=== PATIENT | female | born 1980 | race Caucasian/White ===

== ENCOUNTER 2016-10-15 10:52 | Emergency (ER) | payer OTHER ==
[2016-10-15] MEDS ORDERED: ASPIRIN 81 MG TABLET, CHEWABLE PO ONE (10:59)
[2016-10-15] MEDS ORDERED: NORMAL SALINE 1000 ML 1,000 ML IV ONE (11:12)
--- NOTE | 2016-10-15 11:31 | ER Document Report ---
ED Medical Screen (RME) - General Chief Complaint: Chest Pain Stated Complaint: CHEST PAIN AND SHORTNESS OF BREATH Mode of Arrival: Ambulatory Information source: Patient Notes: 36 y/o F presents to ED c/o chest pain, sob, cough, and associated dizziness/ lightheadedness. Denies fever or n/v. 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 I have greeted and performed a rapid initial assessment of this patient. A comprehensive ED assessment and evaluation of the patient, analysis of test results and completion of the medical decision making process will be conducted by additional ED providers. TRAVEL OUTSIDE OF THE [place] IN LAST 30 DAYS: No - Related Data Allergies/Adverse Reactions: No Known Allergies Allergy (Unverified 10/15/16 11:10) Past Medical History - Social History Chew tobacco use (# tins/day): No Frequency of alcohol use: None Drug Abuse: None Renal/ Medical History: Denies: Hx Peritoneal Dialysis Physical Exam - Vital signs Vitals: Temp Pulse Resp BP Pulse Ox 98.3 F 123 H 16 142/110 H 97 10/15/16 11:06 10/15/16 11:06 10/15/16 11:06 10/15/16 11:06 10/15/16 11:06 - General General appearance: Alert In distress: None - Respiratory Respiratory status: No respiratory distress Breath sounds: Normal - Cardiovascular Rhythm: Regular, Tachycardia Pulses: Normal: Radial Normal capillary refill: Yes Course - Vital Signs Vital signs: Temp Pulse Resp BP Pulse Ox 98.3 F 123 H 16 142/110 H 97 10/15/16 11:06 10/15/16 11:06 10/15/16 11:06 10/15/16 11:06 10/15/16 11:06
[2016-10-15 12:09] LABS: ABSOLUTE BASOPHILS # (AUTO) 0.1 10^3/uL (0.0-0.2); ABSOLUTE EOSINOPHILS # (AUTO) 0.1 10^3/uL (0.0-0.6); ABSOLUTE MONOCYTES (AUTO) 0.8 10^3/uL (0.1-1.4); ABSOLUTE NEUT (AUTO) 8.9 10^3/uL (1.7-8.2); BASOPHILS % (AUTO) 0.5 % (0-2); EOSINOPHILS % (AUTO) 0.5 % (0-6); HEMATOCRIT 42.5 % (36.0-47.0); HEMOGLOBIN 13.9 g/dL (12.0-15.5); HGB HCT DIFFERENCE -0.8; LYMPHOCYTES % (AUTO) 17.1 % (13-45); MEAN CORPUSCULAR HEMOGLOBIN 24.8 pg (27.0-33.4); MEAN CORPUSCULAR HGB CONC 32.6 g/dL (32.0-36.0); MEAN CORPUSCULAR VOLUME 76 fl (80-97); RED BLOOD COUNT 5.59 10^6/uL (3.72-5.28); RED CELL DISTRIBUTION WIDTH 18.5 % (11.5-14.0); SEGMENTED NEUTROPHILS % (AUTO) 74.9 % (42-78); WHITE BLOOD COUNT 11.9 10^3/uL (4.0-10.5)
[2016-10-15 12:30] LABS: ALANINE AMINOTRANSFERASE 27 U/L (9-52); ALBUMIN 4.4 g/dL (3.5-5.0); ALKALINE PHOSPHATASE 84 U/L (38-126); ANION GAP 14 (5-19); ASPARTATE AMINO TRANSFERASE 20 U/L (14-36); BILIRUBIN,TOTAL 0.5 mg/dL (0.2-1.3); BLOOD UREA NITROGEN 16 mg/dL (7-20); CALCIUM 9.9 mg/dL (8.4-10.2); CARBON DIOXIDE 24 mmol/L (22-30); CHLORIDE 103 mmol/L (98-107); CREATINE KINASE 62 U/L (30-135); CREATININE RESULT 0.64 mg/dL (0.52-1.25); GLUCOSE 105 mg/dL (75-110); POTASSIUM 4.9 mmol/L (3.6-5.0); SODIUM 140.7 mmol/L (137-145); TOTAL PROTEIN 7.7 g/dL (6.3-8.2)
[2016-10-15 12:42] LABS: CREATINE KINASE MB 0.31 ng/mL (<4.55)
[2016-10-15 12:43] LABS: TROPONIN I < 0.012 ng/mL
[2016-10-15 12:48] LABS: APPEARANCE,URINE SLIGHTLY-CLOUDY; BILIRUBIN,URINE NEGATIVE (NEGATIVE); GLUCOSE, URINE NEGATIVE (NEGATIVE); KETONES,URINE TRACE mg/dL (NEGATIVE); LEUKOCYTE ESTERASE,URINE SMALL (NEGATIVE); NITRITE,URINE NEGATIVE (NEGATIVE); PROTEIN,URINE 30 mg/dL (NEGATIVE); URINE SPECIFIC GRAVITY 1.038; UROBILINOGEN,URINE NEGATIVE mg/dL (<2.0)
[2016-10-15] MEDS ORDERED: ALBUTEROL SULFATE 0.083% NEB 2.5 MG/3 ML AMPUL NEB ONE (16:21)
--- NOTE | 2016-10-15 16:22 | ER Document Report ---
ED General - General Chief Complaint: Chest Pain Stated Complaint: CHEST PAIN AND SHORTNESS OF BREATH Mode of Arrival: Ambulatory Information source: Patient Notes: This is a 36-year-old female who presents to the ER with a 2-3 day history of congestion, cough, and occasional chills and achiness. She has had no documented fevers at home. Her cough is occasionally productive of white sputum. Today she felt somewhat tight in her chest with a little bit of shortness of breath so she decided to come for evaluation. 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 TRAVEL OUTSIDE OF THE [place] IN LAST 30 DAYS: No - Related Data Allergies/Adverse Reactions: No Known Allergies Allergy (Unverified 10/15/16 11:10) Past Medical History - General Information source: Patient - Social History Smoking Status: Former Smoker Chew tobacco use (# tins/day): No Frequency of alcohol use: None Drug Abuse: None Family History: Reviewed & Not Pertinent Patient has suicidal ideation: No Patient has homicidal ideation: No Renal/ Medical History: Denies: Hx Peritoneal Dialysis Malignancy Medical History: Reports: Other - sarcoma RLE Past Surgical History: Reports: Hx Orthopedic Surgery - RLE amputation Review of Systems - Review of Systems Notes: REVIEW OF SYSTEMS: CONSTITUTIONAL : As per history of present illness EENT: As per history of present illness with nasal congestion. CARDIOVASCULAR: As per history of present illness RESPIRATORY: As per history of present illness GASTROINTESTINAL: Denies abdominal pain. Denies nausea, vomiting, or diarrhea. GENITOURINARY: Denies difficulty urinating, painful urination, burning, frequency, or blood in urine. FEMALE GENITOURINARY: Denies vaginal bleeding, abnormal or irregular periods. LMP: 3 weeks agoi MUSCULOSKELETAL: Denies neck or back pain or joint pain or swelling. SKIN: Denies rash or skin lesions. HEMATOLOGIC : Denies easy bruising or bleeding. LYMPHATIC: Denies swollen, enlarged glands. NEUROLOGICAL: Denies altered mental status or loss of consciousness. Denies headache. PSYCHIATRIC: Denies anxiety or stress or depression. ALL OTHER SYSTEMS REVIEWED AND NEGATIVE. Physical Exam - Vital signs Vitals: Temp Pulse Resp BP Pulse Ox 98.3 F 123 H 16 142/110 H 97 10/15/16 11:06 10/15/16 11:06 10/15/16 11:06 10/15/16 11:06 10/15/16 11:06 - Notes Notes: PHYSICAL EXAMINATION: GENERAL: Well-appearing, well-nourished and in no acute distress. Pleasant and conversant with no conversational dyspnea HEAD: Atraumatic, normocephalic. EYES: Pupils equal round and reactive to light, extraocular movements intact, sclera anicteric, conjunctiva are normal. ENT: nares patent, oropharynx clear without exudates. Moist mucous membranes. NECK: Normal range of motion, supple without lymphadenopathy LUNGS: Breath sounds clear to auscultation bilaterally and equal. No wheezes rales or rhonchi. HEART: Regular rate and rhythm without murmurs ABDOMEN: Soft, nontender, normoactive bowel sounds. No guarding, no rebound. No masses appreciated. EXTREMITIES: Normal range of motion, no pitting or edema. No cyanosis. NEUROLOGICAL: Cranial nerves grossly intact. Normal speech PSYCH: Normal mood, normal affect. SKIN: Warm, Dry, normal turgor, no rashes or lesions noted. Course - Re-evaluation Re-evalutation: 10/15/16 17:36 Patient reevaluated. Tachycardia has improved. She feels somewhat better after the albuterol neb. Her d-dimer is negative and at this point with her upper respiratory symptoms I have a low suspicion for PE do not feel that CT angiogram is indicated at this point. We will treat her bronchitis and she will follow up with her primary care physician. She is instructed to return to the ER for any worsening symptoms or concerns and she is very comfortable with this plan. - Vital Signs Vital signs: Temp Pulse Resp BP Pulse Ox 98.7 F 80 16 119/78 98 10/15/16 17:57 10/15/16 17:57 10/15/16 17:57 10/15/16 17:57 10/15/16 17:57 - Laboratory Result Diagrams: 10/15/16 11:45 10/15/16 11:45 Laboratory results interpreted by me: 10/15/16 10/15/16 11:45 11:45 WBC 11.9 H RBC 5.59 H MCV 76 L MCH 24.8 L RDW 18.5 H Absolute Neutrophils 8.9 H Urine Protein 30 H Urine Ketones TRACE H Ur Leukocyte Esterase SMALL H Urine Ascorbic Acid 40 H - Diagnostic Test Radiology reviewed: Reports reviewed - CXR negative Discharge - Discharge Clinical Impression: Bronchitis Upper respiratory infection Qualifiers: URI type: unspecified URI Qualified Code(s): J06.9 - Acute upper respiratory infection, unspecified Condition: Stable Disposition: HOME, SELF-CARE Additional Instructions: BRONCHITIS: You have acute bronchitis. This disease is an infection or inflammation of the air passageways in your lungs. Symptoms usually include cough, low grade fever, shortness of breath, and wheezing. The cough usually persists for a couple of weeks. Most cases of bronchitis get better without antibiotics. We prescribe antibiotics when we believe bacteria are damaging your airways, or if there's high risk the bronchitis will worsen into pneumonia. Increase your fluid intake. A cool mist humidifier may make your lungs more comfortable. An expectorant (cough medicine that loosens phlegm) can help. If you smoke, STOP!!! Recovery from bronchitis can be somewhat slow, but you should see improvement within a day or two. Repeated episodes of bronchitis may result in lung damage -- for example, chronic bronchitis, recurrent pneumonias, or emphysema. Call the doctor if you develop increasing fever, shortness of breath, chest pain, bloody sputum, or otherwise worsen. If you have not improved at all after several days, contact the physician. COUGH-SUPPRESSANT & EXPECTORANT MEDICATION: You are to use a cough medication as needed for relief of symptoms. This medicine is a combination of an expectorant (to make the mucous thinner and more easily "coughed up") and a cough suppressant (to reduce the frequency of coughing). The cough-suppressant medicine is related to narcotics. You may experience mild nausea and sleepiness. Some patients who are very sensitive to narcotics may have stomach pain from this medicine. Taking the medicine with food reduces these side effects. Do not drive or work with machinery until you know how this medicine affects you. The expectorant should have no side effects. Iodine-containing expectorants (such as organidin) should not be taken by persons with active thyroid disease unless approved by your doctor. Call the doctor if you develop shortness of breath, hives, rash, itching, lightheadedness, or severe nausea and vomiting. INHALED BRONCHODILATORS: You have received a treatment of and/or prescription for an inhaled bronchodilator -- a medication which stimulates the airways in the lung to dilate. This improves the flow of air in asthma, bronchitis, and emphysema. These medicines have some similarity to adrenaline, and can cause similar side effects: shakiness, racing heart, and a sense of nervousness. These side effects decrease with time. Contact your doctor if these side effects are severe. Do not over-use the medicine. Too-frequent use of the inhaler may make it ineffective. Call your doctor if the inhaler is not controlling your symptoms at the prescribed doses. ANTIBIOTIC THERAPY: You have been given an antibiotic prescription. It's important that you take all the medication, unless instructed otherwise by your physician. Failure to complete the entire course can result in relapse of your condition. Common side effects of antibiotics include nausea, intestinal cramping, or diarrhea. Women may develop vaginal yeast infections, and babies can get yeast (thrush) in the mouth following the use of antibiotics. Contact your physician if you develop significant side effects from this medication. Allergy to this antibiotic can result in hives, wheezing, faintness, or itching. If symptoms of allergy occur, stop the medication and call your doctor. AZITHROMYCIN: Azithromycin (Zithromax) is a broad spectrum antibiotic in the same class as erythromycin. It can treat a variety of bacterial infections, but is most frequently used for respiratory infections. Azithromycin is extremely long-lasting. It accumulates in body tissues and continues to kill bacteria for many days. In order to improve absorption, Azithromycin should be taken at least one hour before or two hours after a meal. It does not have the same strong tendency to upset the stomach as erythromycin and is usually very well tolerated. Patients who have had a rash or other true allergic reactions to erythromycin should not take this medication. Call if you develop gastrointestinal distress, severe diarrhea, rash, hives, itching, or shortness of breath. USE OF ACETAMINOPHEN (Tylenol): Acetaminophen may be taken for pain relief or fever control. It's much safer than aspirin, offering a wider range of "safe" dosages. It is safe during . Some brand names are Tylenol, Panadol, Datril, Anacin 3, Tempra, and Liquiprin. Acetaminophen can be repeated every four hours. The following are maximum recommended dosages: >89 pounds or adults 650 mg to 900 mg Acetaminophen can be repeated every four hours. Maximum dose not to exceed 4000 mg a day. SMOKING: If you smoke, you should stop smoking. The tar and chemicals in cigarette smoke are harmful. Smoking has been shown to cause: emphysema chronic bronchitis lung cancer mouth and throat cancer stomach and pancreas cancer premature aging defects In addition, smoking increases ear and lung infections in children of smokers. FOLLOW-UP CARE: If you have been referred to a physician for follow-up care, call the physician s office for an appointment as you were instructed or within the next two days. If you experience worsening or a significant change in your symptoms, notify the physician immediately or return to the Emergency Department at any time for re-evaluation. Prescriptions: Albuterol Sulfate [Proair HFA Inhalation Aerosol 8.5 gm MDI] 2 puff IH Q4H PRN # 1 mdi PRN Reason: Azithromycin [Zithromax 250 mg Tablet] 250 mg PO ASDIR PRN #6 tablet PRN Reason: Guaifenesin/Codeine Phos [Robitussin-AC Syrup 59 ml] 10 ml PO QIDP PRN #120 ml PRN Reason: Prednisone [Deltasone 20 mg Tablet] 2 tab PO DAILY 5 Days Referrals: RENZO GARCIA DO [Primary Care Provider] - Follow up as needed
[2016-10-15 17:58] VITALS: BP 119/78
--- NOTE | 2016-10-15 20:05 | EKG REPORT ---
SEVERITY:- BORDERLINE ECG - SINUS TACHYCARDIA BORDERLINE T WAVE ABNORMALITIES : Confirmed by: Clinton Iniguez 15-Oct-2016 20:04:43
== END 2016-10-15 18:00 | disposition home or self-care (01) ==
LOC: ER 10:52
DX: J06.9 Acute upper respiratory infection, unspecified (principal); J40 Bronchitis, not specified as acute or chronic; R07.9 Chest pain, unspecified; R00.0 Tachycardia, unspecified; Z89.611 Acquired absence of right leg above knee; Z87.891 Personal history of nicotine dependence; Z85.9 Personal history of malignant neoplasm, unspecified
CPT/HCPCS: 93005; 94640; 99284; 96360; 36415; 82553; 82550; 84703; 85025; 80053; 81001; 84484; 85379; 87804; 71020; 93010; J7030

== ENCOUNTER 2018-04-14 20:47 | Inpatient (IN) | payer OTHER ==
[2018-04-14] MEDS ORDERED: ASPIRIN 81 MG TABLET, CHEWABLE PO ONE (21:10)
--- NOTE | 2018-04-14 21:46 | RADIOLOGY REPORT (SQ) ---
EXAM DESCRIPTION: CHEST SINGLE VIEW COMPLETED DATE/TIME: 04/14/2018 9:39 pm REASON FOR STUDY: CP COMPARISON: 10/15/2016 EXAM PARAMETERS: NUMBER OF VIEWS: One view. TECHNIQUE: Single frontal radiographic view of the chest acquired. RADIATION DOSE: NA LIMITATIONS: None. FINDINGS: LUNGS AND PLEURA: Dominant 10 cm mass in the right lung. Multiple pulmonary nodules throu ghout both lungs. MEDIASTINUM AND HILAR STRUCTURES: No masses. Contour normal. HEART AND VASCULAR STRUCTURES: Heart normal in size. Normal vasculature. BONES: No acute findings. HARDWARE: None in the chest. OTHER: No other significant finding. IMPRESSION: Dominant mass with multiple pulmonary nodules. Most likely primary lung malignancy with metastases. TECHNICAL DOCUMENTATION: JOB ID: [id number] [employer]- All Rights Reserved Reading location - IP/workstation name: [email or web address]
[2018-04-14] MEDS ORDERED: LORAZEPAM INJ 2 MG/1 ML VIAL IV ONE (21:50)
[2018-04-14] MEDS ORDERED: NORMAL SALINE 1000 ML 1,000 ML IV ONE (21:51)
[2018-04-14 22:26] LABS: ABSOLUTE BASOPHILS # (AUTO) 0.1 10^3/uL (0.0-0.2); ABSOLUTE EOSINOPHILS # (AUTO) 0.1 10^3/uL (0.0-0.6); ABSOLUTE MONOCYTES (AUTO) 0.8 10^3/uL (0.1-1.4); BASOPHILS % (AUTO) 0.7 % (0-2); EOSINOPHILS % (AUTO) 1.3 % (0-6); HEMATOCRIT 36.4 % (36.0-47.0); HEMOGLOBIN 11.8 g/dL (12.0-15.5); LYMPHOCYTES % (AUTO) 11.2 % (13-45); MEAN CORPUSCULAR HEMOGLOBIN 24.2 pg (27.0-33.4); MEAN CORPUSCULAR HGB CONC 32.5 g/dL (32.0-36.0); MEAN CORPUSCULAR VOLUME 74 fl (80-97); MONOCYTES % (AUTO) 8.5 % (3-13); PLATELET COUNT 331 10^3/uL (150-450); RED CELL DISTRIBUTION WIDTH 16.9 % (11.5-14.0); SEGMENTED NEUTROPHILS % (AUTO) 78.3 % (42-78); TOTAL CELLS COUNTED % (AUTO) 100 %; WHITE BLOOD COUNT 8.9 10^3/uL (4.0-10.5)
[2018-04-14] MEDS ORDERED: MORPHINE SULFATE 10 MG/ML INJ IV PRN (22:32)
--- NOTE | 2018-04-14 22:33 | ER Document Report ---
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 Patient states that she just got back from a vacation to [place]. She states that she had a relatively abrupt onset of a sensation of needing to cough. She states that when she coughed she coughed up approximately a tablespoon of blood. She states thereafter she began to develop a stabbing, constant piercing pain to the right upper side of her chest. She states breathing worsens the pain. Nothing improves the pain. She denies any history of similar symptoms in the past. No history of DVT or pulmonary embolus. She has not contacted her oncologist regarding today's concerns. She is not currently on any chemotherapy due to recent radiation of her left hip. TRAVEL OUTSIDE OF THE [place] IN LAST 30 DAYS: No - Related Data Allergies/Adverse Reactions: No Known Allergies Allergy (Unverified 10/15/16 11:10) Past Medical History - General Information source: Patient - Social History Smoking Status: Never Smoker Chew tobacco use (# tins/day): No Frequency of alcohol use: None Drug Abuse: None Lives with: Spouse/Significant other Family History: Reviewed & Not Pertinent Patient has suicidal ideation: No Patient has homicidal ideation: No Renal/ Medical History: Denies: Hx Peritoneal Dialysis Past Surgical History: Reports: Hx Orthopedic Surgery - RLE amputation Review of Systems - Review of Systems Notes: Constitutional: Negative for fever. HENT: Negative for sore throat. Eyes: Negative for visual changes. Cardiovascular: Positive for chest pain. Respiratory: Positive for shortness of breath. Gastrointestinal: Negative for abdominal pain, vomiting or diarrhea. Genitourinary: Negative for dysuria. Musculoskeletal: Negative for back pain. Skin: Negative for rash. Neurological: Negative for headaches, weakness or numbness. 10 point ROS negative except as marked above and in HPI. Physical Exam - Vital signs Vitals: Temp Pulse Resp BP Pulse Ox 98.3 F 95 20 135/77 H 96 04/14/18 21:07 04/14/18 21:07 04/14/18 21:07 04/14/18 21:07 04/14/18 21:07 Interpretation: Normal Notes: PHYSICAL EXAMINATION: GENERAL: Appears uncomfortable, in pain, no respiratory distress HEAD: Atraumatic, normocephalic. EYES: Pupils equal round and reactive to light, extraocular movements intact, sclera anicteric, conjunctiva are normal. ENT: nares patent, oropharynx clear without exudates. Moderately dry mucous membranes. NECK: Normal range of motion, supple without lymphadenopathy LUNGS: Moderate tachypnea but no overt respiratory distress. Faint expiratory wheezing in the upper right lobe. HEART: Regular tachycardia without murmurs ABDOMEN: Soft, nontender, normoactive bowel sounds. No guarding, no rebound. No masses appreciated. EXTREMITIES: Right BKA. Left lower extremity without any pitting edema. NEUROLOGICAL: No focal neurological deficits. Moves all extremities spontaneously and on command. PSYCH: Moderately anxious SKIN: Warm, Dry, normal turgor, no rashes or lesions noted. Course - Re-evaluation Re-evalutation: 04/14/18 22:32 Patient presents with gross small-volume hemoptysis, shortness of breath, pleuritic pain that started just prior to arrival. She recently got back from vacation in [place]. She has a history of a right BKA secondary to a soft tissue sarcoma now with no metastases to the lungs but not currently on any chemotherapy. High level concern for an acute pulmonary embolus given her initial tachycardia, multitude of risk factors. She is otherwise nontoxic in appearance, although vitals do show mild tachypnea, tachycardia. No hypertension. High level of concern for a pulmonary embolus versus pulmonary hemorrhage. Patient is in guarded condition and will be reassessed at regular intervals. 2330-patient continues to be moderately tachycardic, mildly tachypneic but in no overt respiratory distress. Awaiting results of CTA and laboratories. Will continue to reassess at regular intervals. 04/15/18 00:44 Patient has not had any further episodes of hemoptysis. Vitals have otherwise shown tachycardia but otherwise within acceptable limits. Patient has continued to have significant pain not controlled by IV morphine and we have transitioned to IV hydromorphone. CTA shows extensive lung masses, possible bronchial obstruction with post bronchial pneumonia although patient does not have infectious symptoms suggest this diagnosis. No evidence of PE. I discussed with the patient's oncologist Dr. Doe who has recommended hospitalization. I then also discussed with Dr. Reid. We have reviewed the patient's CT images, clinical history, need for pulmonary consultation and possible bronchoscopy. He is likewise comfortable keeping the patient here. I further discussed with the hospitalist Dr. Martini who is excepted the patient for admission. I then updated the patient on all of her lab results as well as discuss with her the consultations that have been made. She and her are in agreement with management and plan for hospitalization. - Vital Signs Vital signs: Temp Pulse Resp BP Pulse Ox 98.3 F 95 26 H 136/91 H 97 04/14/18 21:07 04/14/18 21:07 04/15/18 02:01 04/15/18 02:00 04/15/18 02:01 - Laboratory Result Diagrams: 04/14/18 22:10 04/14/18 22:10 Laboratory results interpreted by me: 04/14/18 04/14/18 22:10 22:10 Hgb 11.8 L MCV 74 L MCH 24.2 L RDW 16.9 H Seg Neutrophils % 78.3 H Lymphocytes % 11.2 L Carbon Dioxide 21 L Glucose 112 H - Diagnostic Test Radiology reviewed: Reports reviewed - EKG Interpretation by Me Additional EKG results interpreted by me: 04/15/18 02:52 Sinus tachycardia. Rate 107. No ST elevations or depressions. QTC is 438. Critical Care Note - Critical Care Note Total time excluding time spent on procedures (mins): 37 Comments: Critical care time spent obtaining history from patient or surrogate, discussions with consultants, development of treatment plan with patient or surrogate, evaluation of patient's response to treatment, examination of patient , ordering and performing treatments and interventions, ordering and review of laboratory studies, re-evaluation of patient's condition, ordering and review of radiographic studies and review of old charts Discharge - Discharge Clinical Impression: Hemoptysis, Pleuritic pain, Metastatic sarcoma, Tachycardia Lung malignancy Qualifiers: Laterality: unspecified laterality Lung location: unspecified part of lung Qualified Code(s): C34.90 - Malignant neoplasm of unspecified part of unspecified bronchus or lung Condition: Fair Disposition: ADMITTED INPATIENT Admitting Provider: Hospitalist Unit Admitted: [facility]
--- NOTE | 2018-04-14 22:41 | EKG REPORT ---
SEVERITY:- BORDERLINE ECG - SINUS TACHYCARDIA BORDERLINE T ABNORMALITIES, INFERIOR LEADS : Confirmed by: Clinton Iniguez 14-Apr-2018 22:40:55
[2018-04-14 22:45] LABS: ALANINE AMINOTRANSFERASE 24 U/L (9-52); ALKALINE PHOSPHATASE 73 U/L (38-126); ANION GAP 16 (5-19); ASPARTATE AMINO TRANSFERASE 17 U/L (14-36); BILIRUBIN,DIRECT 0.3 mg/dL (0.0-0.4); BILIRUBIN,TOTAL 0.4 mg/dL (0.2-1.3); BLOOD UREA NITROGEN 13 mg/dL (7-20); CALCIUM 9.3 mg/dL (8.4-10.2); CARBON DIOXIDE 21 mmol/L (22-30); CHLORIDE 105 mmol/L (98-107); CREATINE KINASE 38 U/L (30-135); GLUCOSE 112 mg/dL (75-110); POTASSIUM 4.1 mmol/L (3.6-5.0); SODIUM 142.1 mmol/L (137-145); TOTAL PROTEIN 7.2 g/dL (6.3-8.2)
[2018-04-14 22:58] LABS: CREATINE KINASE MB < 0.22 ng/mL (<4.55); TROPONIN I < 0.012 ng/mL
--- NOTE | 2018-04-14 23:52 | RADIOLOGY REPORT (SQ) ---
EXAM DESCRIPTION: CT CHEST ANGIOGRAPHY WITHOUT THEN WITH IV CONTRAST COMPLETED DATE/TME: 04/14/2018 21:50 CLINICAL HISTORY: cxr findings, hemoptysis, sob COMPARISON: None Available. TECHNIQUE: CTA of the chest obtained following the uncomplicated intravenous administration of 170 mL Omnipaque 350. 3-D/MIP reformatted images of the chest available for evaluation. DLP: 2040.06 mGycm FINDINGS: Chest: Pulmonary arteries: Contrast bolus is adequate.No filling defects identified in the pulmonary arteries to suggest pulmonary embolus. Thyroid:No abnormalities of the visualized thyroid. Great Vessels:Great vessels have normal anatomic configuration. Thoracic Aorta:No abnormalities of the thoracic aorta identified. Heart:No cardiomegaly, significant pericardial effusion, or coronary artery atherosclerosis Lymph Nodes: Large left AP window lymph node measuring 3.1 x 2.1 cm Esophagus:No abnormalities of the esophagus identified. Other:No additional findings. Lungs: There are multiple large masses throughout the lungs bilaterally, the largest of these is in the right upper lobe measuring 9.1 x 5.5 cm in greatest axial dimensions. Hazy groundglass opacities surrounding this largest mass. The second largest mass is in the lingula measuring 7.4 x 4.5 cm. Pleura: Small right pleural effusion. No pneumothorax. Trachea/Airways: No acute abnormalities of the trachea. Bones: Partially sclerotic lesion in the T12 vertebral body of indeterminate etiology. This may represent an atypical hemangioma however metastatic disease could produce a similar appearance. Upper Abdomen: In the right hepatic lobe there is an enhancing 3.1 x 2.2 cm nodule which is incompletely characterized on this study. No abnormalities of visualized spleen, pancreas, adrenal glands, gallbladder, or kidneys. IMPRESSION: 1. No pulmonary embolus identified. 2. Dominant lung mass in the right upper lobe measuring 9.1 cm in greatest dimension as well as a second large mass in the lingula measuring 7.4 cm. There are also numerous pulmonary nodules throughout the lungs bilaterally. These findings are concerning for metastatic disease. 3. There is a large AP window mediastinal lymph node measuring 3.1 cm in greatest dimension. 4. There is an enhancing right hepatic nodule of indeterminate etiology measuring 3.1 cm in greatest dimension. Correlation with three-phase hepatic CT could provide additional characterization. 5. Groundglass opacity surrounding the right upper lobe mass. This may be related to bronchial obstruction and developing postobstructive pneumonia. 6. Small right pleural effusion. This exam was performed according to our departmental dose-optimization program, which includes automated exposure control, adjustment of the mA and/or kV according to patient size and/or use of iterative reconstruction technique.
[2018-04-15] MEDS: HYDROMORPHONE HCL INJ/PF 2 MG/ML AMPULE IV PRN ×7 (00:24→21:39)
[2018-04-15] MEDS ORDERED: IPRATROPIUM/ALBUTEROL 0.5-2.5 MG/3 ML AMPUL NEB ONE (00:25)
[2018-04-15] MEDS ORDERED: LIDOCAINE 2% INJ-PF (20 MG/ML) 10 ML AMPUL NEB ONE (00:25)
[2018-04-15] MEDS ORDERED: BENZONATATE 100 MG CAPSULE PO ONE (01:04)
[2018-04-15] MEDS ORDERED: IPRATROPIUM/ALBUTEROL 0.5-2.5 MG/3 ML AMPUL NEB PRN (02:19)
[2018-04-15] MEDS ORDERED: DEXTROSE 40% GEL 15 GM TUBE PO PRN ×2 (02:19)
[2018-04-15] MEDS ORDERED: GLUCAGON,HUMAN RECOMB 1 MG INJ SUBCUT PRN (02:19)
[2018-04-15] MEDS ORDERED: DEXTROSE 50%-WATER 25 GM/50 ML DISP.SYRIN IV PRN ×2 (02:19)
[2018-04-15] MEDS ORDERED: NORMAL SALINE 1000 ML 1,000 ML IV SCH (02:30)
[2018-04-15 02:53] LABS: PROTHROMBIN TIME 12.6 SEC (11.4-15.4)
[2018-04-15] MEDS ORDERED: HYDROMORPHONE HCL INJ/PF 2 MG/ML AMPULE IV PRN (04:56)
--- NOTE | 2018-04-15 04:56 | PDOC H&P ---
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 Patient presents with acute onset of right-sided chest pain, shortness of breath and small volume hemoptysis. Pain was stabbing and constant to the right upper chest worsened with breathing, she denies previous episode. In the emergency room she has a CTA negative for common emboli but notable for multiple large bilateral lung masses. No further episodes of hemoptysis, pain is controlled with IV Dilaudid , and referred to the hospitalist for admission. Patient denies recent change in medications she is not currently on chemotherapy secondary to hip replacement with follow-up radiation. Oncologist consulted. Past Medical History Malignancy Medical History: Reports: Lung Cancer, Other Psychiatric Medical History: Denies: Tobacco Dependency Past Surgical History Past Surgical History: Reports: Orthopedic Surgery - RLE amputation Social History Information Source: Patient, [facility] Records Lives with: Spouse/Significant other Smoking Status: Never Smoker Frequency of Alcohol Use: None Drugs: None - Advance Directive Resuscitation Status: Full Code Family History Family History: None Parental Family History Reviewed: Yes Children Family History Reviewed: Yes Sibling(s) Family History Reviewed.: Yes Medication/Allergy Home Medications: Levothyroxine Sodium [Synthroid] 1 tab PO DAILY 04/15/18 Allergies/Adverse Reactions: No Known Allergies Allergy (Unverified 10/15/16 11:10) Review of Systems Constitutional: ABSENT: chills, fever(s), headache(s), weight gain, weight loss Eyes: ABSENT: visual disturbances Ears: ABSENT: hearing changes Cardiovascular: ABSENT: chest pain, dyspnea on exertion, edema, orthropnea, palpitations Respiratory: ABSENT: cough, hemoptysis Gastrointestinal: ABSENT: abdominal pain, constipation, diarrhea, hematemesis, hematochezia, nausea, vomiting Genitourinary: ABSENT: dysuria, hematuria Musculoskeletal: ABSENT: joint swelling Integumentary: ABSENT: rash, wounds Neurological: ABSENT: abnormal gait, abnormal speech, confusion, dizziness, focal weakness, syncope Psychiatric: ABSENT: anxiety, depression, homidical ideation, suicidal ideation Endocrine: ABSENT: cold intolerance, heat intolerance, polydipsia, polyuria Hematologic/Lymphatic: ABSENT: easy bleeding, easy bruising Physical Exam Vital Signs: Temp Pulse Resp BP Pulse Ox 98.3 F 95 26 H 136/91 H 97 04/14/18 21:07 04/14/18 21:07 04/15/18 02:01 04/15/18 02:00 04/15/18 02:01 General appearance: PRESENT: cooperative, mild distress, well-developed, well- nourished Head exam: PRESENT: atraumatic, normocephalic Eye exam: PRESENT: conjunctiva pink, EOMI, PERRLA. ABSENT: scleral icterus Ear exam: PRESENT: normal external ear exam Mouth exam: PRESENT: moist, tongue midline Neck exam: ABSENT: carotid bruit, JVD, lymphadenopathy, thyromegaly Respiratory exam: PRESENT: crackles, rales, symmetrical, tachypnea. ABSENT: accessory muscle use, chest wall tenderness, clear to auscultation arron, rhonchi , wheezes Cardiovascular exam: PRESENT: RRR. ABSENT: diastolic murmur, rubs, systolic murmur Pulses: PRESENT: normal dorsalis pedis pul Vascular exam: PRESENT: normal capillary refill GI/Abdominal exam: PRESENT: normal bowel sounds, soft. ABSENT: distended, guarding, mass, organolmegaly, rebound, tenderness Rectal exam: PRESENT: deferred Extremities exam: PRESENT: full ROM. ABSENT: calf tenderness, clubbing, pedal edema Neurological exam: PRESENT: alert, awake, oriented to person, oriented to place , oriented to time, oriented to situation, CN II-XII grossly intact. ABSENT: motor sensory deficit Psychiatric exam: PRESENT: appropriate affect, normal mood. ABSENT: homicidal ideation, suicidal ideation Skin exam: PRESENT: dry, intact, warm. ABSENT: cyanosis, rash Results Impressions: Chest X-Ray 04/14/18 21:10 IMPRESSION: Dominant mass with multiple pulmonary nodules. Most likely primary lung malignancy with metastases. Chest/Abdomen CTA 04/14/18 21:50 IMPRESSION: 1. No pulmonary embolus identified. 2. Dominant lung mass in the right upper lobe measuring 9.1 cm in greatest dimension as well as a second large mass in the lingula measuring 7.4 cm. There are also numerous pulmonary nodules throughout the lungs bilaterally. These findings are concerning for metastatic disease. 3. There is a large AP window mediastinal lymph node measuring 3.1 cm in greatest dimension. 4. There is an enhancing right hepatic nodule of indeterminate etiology measuring 3.1 cm in greatest dimension. Correlation with three-phase hepatic CT could provide additional characterization. 5. Groundglass opacity surrounding the right upper lobe mass. This may be related to bronchial obstruction and developing postobstructive pneumonia. 6. Small right pleural effusion. This exam was performed according to our departmental dose-optimization program, which includes automated exposure control, adjustment of the mA and/or kV according to patient size and/or use of iterative reconstruction technique. Assessment & Plan - Diagnosis (1) Hemoptysis Is this a current diagnosis for this admission?: Yes Plan: Hemoptysis secondary to lung mass, IMCU admission, follow-up PT/INR, CBC, pulmonology and oncology consult (2) Lung malignancy Qualifiers: Laterality: unspecified laterality Lung location: unspecified part of lung Qualified Code(s): C34.90 - Malignant neoplasm of unspecified part of unspecified bronchus or lung Is this a current diagnosis for this admission?: Yes Plan: Oncology consult (3) Metastatic sarcoma Is this a current diagnosis for this admission?: Yes Plan: Oncology consult (4) Pleuritic pain Is this a current diagnosis for this admission?: Yes Plan: Dilaudid as needed - Time Time Spent: 50 to 70 Minutes - Inpatient Certification Medical Necessity: Need Close Monitoring Due to Risk of Patient Decompensation
[2018-04-15 05:22] LABS: ABSOLUTE LYMPHOCYTES (AUTO) 0.5 10^3/uL (0.5-4.7); ABSOLUTE MONOCYTES (AUTO) 0.5 10^3/uL (0.1-1.4); ABSOLUTE NEUT (AUTO) 7.4 10^3/uL (1.7-8.2); BASOPHILS % (AUTO) 0.2 % (0-2); HEMATOCRIT 30.5 % (36.0-47.0); HEMOGLOBIN 10.1 g/dL (12.0-15.5); LYMPHOCYTES % (AUTO) 6.4 % (13-45); MEAN CORPUSCULAR HEMOGLOBIN 24.5 pg (27.0-33.4); MEAN CORPUSCULAR HGB CONC 33.1 g/dL (32.0-36.0); MEAN CORPUSCULAR VOLUME 74 fl (80-97); MONOCYTES % (AUTO) 5.8 % (3-13); PLATELET COUNT 297 10^3/uL (150-450); RED BLOOD COUNT 4.12 10^6/uL (3.72-5.28); RED CELL DISTRIBUTION WIDTH 16.5 % (11.5-14.0); SEGMENTED NEUTROPHILS % (AUTO) 87.6 % (42-78); TOTAL CELLS COUNTED % (AUTO) 100 %; WHITE BLOOD COUNT 8.5 10^3/uL (4.0-10.5)
[2018-04-15 05:46] LABS: ANION GAP 16 (5-19); BLOOD UREA NITROGEN 11 mg/dL (7-20); CALCIUM 8.6 mg/dL (8.4-10.2); CARBON DIOXIDE 18 mmol/L (22-30); CHLORIDE 106 mmol/L (98-107); GLUCOSE 137 mg/dL (75-110); POTASSIUM 4.2 mmol/L (3.6-5.0)
[2018-04-15] MEDS: NORMAL SALINE 1000 ML 1,000 ML IV PRN ×2 (07:00→12:08)
[2018-04-15] MEDS: LEVOTHYROXINE SODIUM 0.15 MG TABLET PO SCH (07:08)
[2018-04-15] MEDS: HEPARIN SOD (PORCINE) 5,000 UNIT/ML 1 ML SYRINGE SUBCUT SCH ×3 (07:09→21:40)
[2018-04-15] MEDS ORDERED: NORMAL SALINE 1000 ML 1,000 ML IV PRN (08:30)
[2018-04-15] MEDS: IPRATROPIUM/ALBUTEROL 0.5-2.5 MG/3 ML AMPUL NEB SCH ×2 (08:35→15:57)
[2018-04-15] MEDS ORDERED: ONDANSETRON HCL INJ/PF 4 MG/2 ML SDV IV PRN (09:10)
[2018-04-15] MEDS ORDERED: POLYETHYLENE GLYCOL 3350 POWDER 17 GM/1 PACKET PO PRN (09:10)
[2018-04-15] MEDS: OXYCODONE HCL SR 10 MG TABLET PO SCH ×2 (10:35→21:38)
[2018-04-15] MEDS: HYDROMORPHONE HCL 2 MG TABLET PO PRN (10:35)
--- NOTE | 2018-04-15 12:55 | RADIOLOGY REPORT (SQ) ---
EXAM DESCRIPTION: CHEST SINGLE VIEW COMPLETED DATE/TIME: 04/15/2018 12:12 pm REASON FOR STUDY: Hemoptysis; large lung mass. COMPARISON: CT chest and radiographs from 1 day previously. FINDINGS: AP portable upright single-view chest. As seen on previous study, mass in the right lung with numerous additional masses in both lung browning . Right pleural fluid with diminished right basilar aeration. Stable cardiomediastinal silhouette. No pneumothorax. IMPRESSION: As above. TECHNICAL DOCUMENTATION: JOB ID: [id number] Reading location - IP/workstation name: [email or web address]
[2018-04-15] MEDS: LORAZEPAM INJ 2 MG/1 ML VIAL IV PRN (14:33)
[2018-04-15] MEDS: SENNOSIDES/DOCUSATE 8.6-50 MG 1 EACH TABLET PO PRN (16:40)
--- NOTE | 2018-04-15 17:06 | Progress Note ---
Provider Note Provider Note: This patient was admitted by my colleague, Dr. Martini earlier this morning. She is resting quietly and has no new complaints. Vital signs and lab findings are within acceptable levels. She has been seen by pulmonology, and is awaiting consult with oncology. Heart sounds show regular rate, and rhythm. No murmurs, ectopy, or gallups. No lateral PMI. No thrills. Lung sounds are without rales, rhonchi or wheezes. No increased work of breathing. The abdomen is soft, non-tender, non-distended. Normoactive bowel sounds. No organomegaly, masses, or hernias. Extremities are free of cyanosis, clubbing or erythema.
[2018-04-15] MEDS ORDERED: DIPHENHYDRAMINE HCL 25 MG CAPSULE PO PRN (17:30)
--- NOTE | 2018-04-15 17:38 | PDOC PROGRESS REPORT ---
Subjective Progress Note for:: 04/15/18 Subjective:: The patient is resting quietly. No new complaints. Reason For Visit: HEMOPTOSIS, LUNG MASS Physical Exam Vital Signs: Temp Pulse Resp BP Pulse Ox 99.2 F 131 H 18 142/93 H 98 04/15/18 12:01 04/15/18 14:00 04/15/18 12:01 04/15/18 12:01 04/15/18 12:01 Intake & Output 04/14/18 04/15/18 04/16/18 06:59 06:59 06:59 Intake Total 0 1737 Output Total 0 500 Balance 0 1237 Weight 103.2 kg General appearance: PRESENT: no acute distress, cooperative Respiratory exam: PRESENT: other - No increased work of breathing.. ABSENT: rales, rhonchi, wheezes Cardiovascular exam: PRESENT: RRR. ABSENT: gallop, rubs, systolic murmur Pulses: PRESENT: normal dorsalis pedis pul GI/Abdominal exam: PRESENT: normal bowel sounds, soft. ABSENT: distended, tenderness Extremities exam: ABSENT: clubbing, tenderness Musculoskeletal exam: PRESENT: deformity, dislocation Neurological exam: PRESENT: alert, awake, oriented to person, oriented to place , oriented to time, oriented to situation. ABSENT: CN II-XII grossly intact, motor sensory deficit Psychiatric exam: PRESENT: appropriate affect, normal mood Skin exam: PRESENT: dry, intact, warm Results Laboratory Results: 04/15/18 04:33 04/15/18 04:33 04/15/18 04/15/18 04:33 04:33 WBC 8.5 RBC 4.12 Hgb 10.1 L Hct 30.5 L MCV 74 L MCH 24.5 L MCHC 33.1 RDW 16.5 H Plt Count 297 Seg Neutrophils % 87.6 H Lymphocytes % 6.4 L Monocytes % 5.8 Eosinophils % 0.0 Basophils % 0.2 Absolute Neutrophils 7.4 Absolute Lymphocytes 0.5 Absolute Monocytes 0.5 Absolute Eosinophils 0.0 Absolute Basophils 0.0 Sodium 140.0 Potassium 4.2 Chloride 106 Carbon Dioxide 18 L Anion Gap 16 BUN 11 Creatinine 0.53 Est GFR ( Amer) > 60 Est GFR (Non-Af Amer) > 60 Glucose 137 H Calcium 8.6 Impressions: Chest/Abdomen CTA 04/14/18 21:50 IMPRESSION: 1. No pulmonary embolus identified. 2. Dominant lung mass in the right upper lobe measuring 9.1 cm in greatest dimension as well as a second large mass in the lingula measuring 7.4 cm. There are also numerous pulmonary nodules throughout the lungs bilaterally. These findings are concerning for metastatic disease. 3. There is a large AP window mediastinal lymph node measuring 3.1 cm in greatest dimension. 4. There is an enhancing right hepatic nodule of indeterminate etiology measuring 3.1 cm in greatest dimension. Correlation with three-phase hepatic CT could provide additional characterization. 5. Groundglass opacity surrounding the right upper lobe mass. This may be related to bronchial obstruction and developing postobstructive pneumonia. 6. Small right pleural effusion. This exam was performed according to our departmental dose-optimization program, which includes automated exposure control, adjustment of the mA and/or kV according to patient size and/or use of iterative reconstruction technique. Chest X-Ray 04/15/18 13:00 IMPRESSION: As above. Assessment & Plan - Diagnosis (1) Hemoptysis Is this a current diagnosis for this admission?: Yes (2) Lung malignancy Qualifiers: Laterality: unspecified laterality Lung location: unspecified part of lung Qualified Code(s): C34.90 - Malignant neoplasm of unspecified part of unspecified bronchus or lung Is this a current diagnosis for this admission?: Yes (3) Metastatic sarcoma Is this a current diagnosis for this admission?: Yes (4) Pleuritic pain Is this a current diagnosis for this admission?: Yes - Time Time Spent with patient: 25-34 minutes Medications reviewed and adjusted accordingly: Yes
--- NOTE | 2018-04-15 17:54 | PDOC CONSULTATION ---
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 And she was imaged per clinical trial every 6 weeks until October, thereafter has disease was stable, with lung metastasis, imaging was then held until December. In December, she tells me the lung nodule seemed to increase in size slightly, but there was new finding in the left hip. Therefore, she had left hip arthroplasty at [facility]. There was recurrence of the synovial sarcoma noted there. She then had postoperative radiation to left hip that was completed 03/22/18. She was being planned through [facility] to initiate a clinical trial the [place] [id number] with Pazopanib vs MLN 0128. She noted that we have this clinical trial open as well, we were in the midst of evaluating her for trial. She apparently presented with severe intractable shortness of breath and chest pain, she had CT of the chest, this indicates a dominant mass in the right lung at 9.1 cm, numerous bilateral pulmonary nodules as well as a liver lesion. She was admitted because of intractable pain despite several doses of IV pain medication in the ED. Past Medical History Malignancy Medical History: Reports: Lung Cancer, Other - Synovial sarcoma stage IV as above Psychiatric Medical History: Denies: Tobacco Dependency Past Surgical History Past Surgical History: Reports: Orthopedic Surgery - RLE amputation Social History Information Source: Patient Lives with: Spouse/Significant other Smoking Status: Never Smoker Frequency of Alcohol Use: None Hx Recreational Drug Use: No Drugs: None Hx Prescription Drug Abuse: No - Advance Directive Resuscitation Status: Full Code Family History Family History: None Parental Family History Reviewed: Yes Children Family History Reviewed: Yes Sibling(s) Family History Reviewed.: Yes Medication/Allergy Home Medications: Alprazolam [Xanax 0.5 mg Tablet] 0.5 mg PO DAILYP PRN 04/15/18 Dronabinol [Marinol 2.5 mg Capsule] 2.5 mg PO Q6HP PRN 04/15/18 Levothyroxine Sodium [Synthroid 0.15 mg Tablet] 0.15 mg PO [id number] 04/15/18 Oxycodone HCl [Oxy-Ir 5 mg Tablet] 5 mg PO Q6HP PRN 04/15/18 Oxycodone HCl [Oxycontin] 10 mg PO Q12HP PRN 04/15/18 Zolpidem Tartrate [Ambien] 10 mg PO HSP PRN 04/15/18 Allergies/Adverse Reactions: No Known Allergies Allergy (Unverified 10/15/16 11:10) Review of Systems Constitutional: PRESENT: anorexia, fatigue, weakness Cardiovascular: PRESENT: chest pain, dyspnea on exertion Gastrointestinal: ABSENT: abdominal pain, constipation, diarrhea, hematemesis, hematochezia, nausea, vomiting Musculoskeletal: ABSENT: joint swelling Integumentary: PRESENT: as per HPI. ABSENT: rash, wounds Neurological: ABSENT: abnormal gait, abnormal speech, confusion, dizziness, focal weakness, syncope Endocrine: ABSENT: cold intolerance, heat intolerance, polydipsia, polyuria Physical Exam Vital Signs: Temp Pulse Resp BP Pulse Ox 97.9 F 97 20 125/80 98 04/15/18 03:15 04/15/18 06:55 04/15/18 03:15 04/15/18 03:15 04/15/18 03:15 Intake & Output 04/14/18 04/15/18 04/16/18 06:59 06:59 06:59 Intake Total 0 Output Total 0 Balance 0 Weight 103.2 kg General appearance: PRESENT: no acute distress, well-developed, well-nourished Head exam: PRESENT: atraumatic, normocephalic Eye exam: PRESENT: conjunctiva pink, EOMI, PERRLA. ABSENT: scleral icterus Ear exam: PRESENT: normal external ear exam Mouth exam: PRESENT: moist, tongue midline Neck exam: ABSENT: carotid bruit, JVD, lymphadenopathy, thyromegaly Respiratory exam: PRESENT: clear to auscultation arron. ABSENT: rales, rhonchi, wheezes Cardiovascular exam: PRESENT: RRR. ABSENT: diastolic murmur, rubs, systolic murmur Pulses: PRESENT: normal dorsalis pedis pul Vascular exam: PRESENT: normal capillary refill GI/Abdominal exam: PRESENT: normal bowel sounds, soft. ABSENT: distended, guarding, mass, organolmegaly, rebound, tenderness Rectal exam: PRESENT: deferred Extremities exam: PRESENT: full ROM. ABSENT: calf tenderness, clubbing, pedal edema Neurological exam: PRESENT: alert, awake, oriented to person, oriented to place , oriented to time, oriented to situation, CN II-XII grossly intact. ABSENT: motor sensory deficit Psychiatric exam: PRESENT: appropriate affect, normal mood. ABSENT: homicidal ideation, suicidal ideation Skin exam: PRESENT: dry, intact, warm. ABSENT: cyanosis, rash Results Laboratory Results: 04/15/18 04:33 04/15/18 04:33 04/15/18 04/15/18 04:33 04:33 WBC 8.5 RBC 4.12 Hgb 10.1 L Hct 30.5 L MCV 74 L MCH 24.5 L MCHC 33.1 RDW 16.5 H Plt Count 297 Seg Neutrophils % 87.6 H Lymphocytes % 6.4 L Monocytes % 5.8 Eosinophils % 0.0 Basophils % 0.2 Absolute Neutrophils 7.4 Absolute Lymphocytes 0.5 Absolute Monocytes 0.5 Absolute Eosinophils 0.0 Absolute Basophils 0.0 Sodium 140.0 Potassium 4.2 Chloride 106 Carbon Dioxide 18 L Anion Gap 16 BUN 11 Creatinine 0.53 Est GFR ( Amer) > 60 Est GFR (Non-Af Amer) > 60 Glucose 137 H Calcium 8.6 Impressions: Chest X-Ray 04/14/18 21:10 IMPRESSION: Dominant mass with multiple pulmonary nodules. Most likely primary lung malignancy with metastases. Chest/Abdomen CTA 04/14/18 21:50 IMPRESSION: 1. No pulmonary embolus identified. 2. Dominant lung mass in the right upper lobe measuring 9.1 cm in greatest dimension as well as a second large mass in the lingula measuring 7.4 cm. There are also numerous pulmonary nodules throughout the lungs bilaterally. These findings are concerning for metastatic disease. 3. There is a large AP window mediastinal lymph node measuring 3.1 cm in greatest dimension. 4. There is an enhancing right hepatic nodule of indeterminate etiology measuring 3.1 cm in greatest dimension. Correlation with three-phase hepatic CT could provide additional characterization. 5. Groundglass opacity surrounding the right upper lobe mass. This may be related to bronchial obstruction and developing postobstructive pneumonia. 6. Small right pleural effusion. This exam was performed according to our departmental dose-optimization program, which includes automated exposure control, adjustment of the mA and/or kV according to patient size and/or use of iterative reconstruction technique. Status: Image reviewed by me Assessment & Plan - Diagnosis (1) Acute neoplasm-related pain Is this a current diagnosis for this admission?: Yes Plan: Pain from lung dx, today changed pain meds to add dilaudid oral and IV based on pain scale and oxycontin (2) Metastatic sarcoma Is this a current diagnosis for this admission?: Yes Plan: Discussed with Dr. Sarmiento who feels pt needs systemic chemo started, have placed orders to initiate therapy as outpt - Time Time Spent: Greater than 70 Minutes - Inpatient Certification Based on my medical assessment, after consideration of the patient's comorbidities, presenting symptoms, or acuity I expect that the services needed warrant INPATIENT care.: Yes I certify that my determination is in accordance with my understanding of Medicare's requirements for reasonable and necessary INPATIENT services [42 CFR 412.3e].: Yes Medical Necessity: Need for Pain Control
[2018-04-15] MEDS: DIPHENHYDRAMINE HCL 50 MG/ML VIAL IV PRN (19:13)
[2018-04-15] MEDS ORDERED: LEVOFLOXACIN 500 MG TABLET PO SCH (21:00)
[2018-04-16] MEDS: HYDROMORPHONE HCL INJ/PF 2 MG/ML AMPULE IV PRN ×3 (00:13→12:25)
[2018-04-16] MEDS: IPRATROPIUM/ALBUTEROL 0.5-2.5 MG/3 ML AMPUL NEB SCH ×2 (00:21→08:57)
[2018-04-16] MEDS: DIPHENHYDRAMINE HCL 50 MG/ML VIAL IV PRN ×2 (01:07→07:56)
[2018-04-16] MEDS: HYDROMORPHONE HCL 2 MG TABLET PO PRN ×2 (03:43→07:55)
[2018-04-16] MEDS: LORAZEPAM INJ 2 MG/1 ML VIAL IV PRN (04:09)
[2018-04-16 05:19] LABS: ABSOLUTE EOSINOPHILS # (AUTO) 0.2 10^3/uL (0.0-0.6); ABSOLUTE LYMPHOCYTES (AUTO) 1.6 10^3/uL (0.5-4.7); ABSOLUTE MONOCYTES (AUTO) 1.3 10^3/uL (0.1-1.4); BASOPHILS % (AUTO) 0.5 % (0-2); EOSINOPHILS % (AUTO) 1.9 % (0-6); HEMATOCRIT 25.6 % (36.0-47.0); HEMOGLOBIN 8.3 g/dL (12.0-15.5); LYMPHOCYTES % (AUTO) 17.2 % (13-45); MEAN CORPUSCULAR HEMOGLOBIN 24.3 pg (27.0-33.4); MEAN CORPUSCULAR HGB CONC 32.5 g/dL (32.0-36.0); MEAN CORPUSCULAR VOLUME 75 fl (80-97); PLATELET COUNT 270 10^3/uL (150-450); RED BLOOD COUNT 3.42 10^6/uL (3.72-5.28); RED CELL DISTRIBUTION WIDTH 16.7 % (11.5-14.0); SEGMENTED NEUTROPHILS % (AUTO) 66.4 % (42-78); TOTAL CELLS COUNTED % (AUTO) 100 %; WHITE BLOOD COUNT 9.1 10^3/uL (4.0-10.5)
[2018-04-16 05:48] LABS: ANION GAP 14 (5-19); BLOOD UREA NITROGEN 5 mg/dL (7-20); CALCIUM 8.7 mg/dL (8.4-10.2); CARBON DIOXIDE 20 mmol/L (22-30); CHLORIDE 103 mmol/L (98-107); GLUCOSE 121 mg/dL (75-110); POTASSIUM 4.2 mmol/L (3.6-5.0)
[2018-04-16] MEDS: HEPARIN SOD (PORCINE) 5,000 UNIT/ML 1 ML SYRINGE SUBCUT SCH ×2 (06:47→14:06)
[2018-04-16] MEDS: LEVOTHYROXINE SODIUM 0.15 MG TABLET PO SCH (06:47)
--- NOTE | 2018-04-16 07:21 | CONSULTATION REPORT E ---
Consultation Report NAME: COLTON ESCALONA : 1980 AGE: 37Y DATE: 04/15/2018 TO: KAJAL SNIDER M.D. FROM: Requesting Physician The patient is a 37-year-old female who came in with chest tightness and hemoptysis, which started yesterday. She says she coughed out about a teaspoon of blood, and she went to the emergency room. CT scan yesterday showed a small pleural effusion right side, and multiple lung metastasis bilaterally. The patient was diagnosed with stage IV sarcoma in October 2015, followed by February 2016 biopsy showing synovial sarcoma. Transtibial amputation in March 2016. The patient underwent chemotherapy. 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 The patient is feeling better. She is not coughing as much as when she was admitted yesterday. Denies any hemoptysis this admission. No fever or chills. Claims that she is breathing better after the nebulizer treatments. PAST MEDICAL HISTORY: Same as above. Lung cancer metastatic, synovial sarcoma stage IV. SURGICAL HISTORY: Right lower extremity amputation and left hip arthroplasty. SOCIAL HISTORY: Lives with spouse. Never smoked. Denies alcohol abuse or illicit drug use. FAMILY HISTORY: Unremarkable. MEDICATIONS AT HOME: 1. Xanax. 2. Marinol. 3. Synthroid. 4. Oxycodone. 5. Ambien. ALLERGIES: No known drug allergies. REVIEW OF SYSTEMS: CONSTITUTIONAL: No fever or chills. EYES: No conjunctival pallor. ENT: No ear discharge, no nasal discharge. CHEST: Hemoptysis of 1 teaspoon. Coughing. No purulent sputum. CARDIAC: No angina. No heart attack. No palpitations or irregular heartbeat. ABDOMEN: No vomiting. EXTREMITIES: No joint symptoms. PHYSICAL EXAMINATION: GENERAL: The patient is awake, alert, oriented x3. VITAL SIGNS: Temperature 98.9, pulse rate 118, blood pressure 152/96. T-max 99.2. Respiratory rate 20. Saturation 96% on room air. EYES: No conjunctival pallor. ENT: No ear drainage, no nasal discharge. HEAD AND NECK: No scalp swelling, no neck tenderness. CHEST AND LUNGS: No wheezing, no rhonchi. No coarse crackles. CARDIOVASCULAR: S1, S2 distinct. No murmur. ABDOMEN: Flabby, positive bowel sounds. Soft, nondistended, nontender. EXTREMITIES: No joint swelling. No cellulitis. LABORATORY: CBC done today showed white count of 8.5, hemoglobin 10.1, hematocrit 30.5, platelet count 287. PT was 12.6. INR 12.9 yesterday. Chemistry done today showed sodium 140, potassium 4.2, chloride 106, CO2 of 18, BUN 11, creatinine 0.53. Glucose 137, calcium 8.6. Chest CT scan done yesterday showed large mass on the right with marked consolidation. Pneumonia cannot be completely excluded. Chest x-ray done today compared to the one yesterday showed increasing infiltrate right lung base, right middle lobe. ASSESSMENT: 1. HEMOPTYSIS. Essentially stable. 2. PNEUMONIA. right lung base -cannot be completely excluded. 3. PULMONARY INFILTRATE. Right lung base and right middle lobe. Appears to be new compared to yesterday. May be inflammatory or may be infectious etiology. PLAN/RECOMMENDATIONS: Will start the patient on Levaquin 500 mg 1 tablet p.o. daily. First dose tonight. The patient is scheduled for chest CT scan tonight. Medical oncologist will follow the patient. Will continue the nebulizer treatment. DICTATING PHYSICIAN: KAJAL SNIDER MD,[place],MPH [id number] [id number] 2005 ID: [id number] JOB#: [id number] ACCT: [id number] cc:KAJAL SNIDER M.D. > MTDD
[2018-04-16] MEDS: SENNOSIDES/DOCUSATE 8.6-50 MG 1 EACH TABLET PO PRN (07:58)
--- NOTE | 2018-04-16 08:38 | RADIOLOGY REPORT (SQ) ---
EXAM DESCRIPTION: CT ABD/PELVIS WITH IV ONLY COMPLETED DATE/TIME: 04/15/2018 11:54 pm REASON FOR STUDY: sarcoma COMPARISON: CT chest 04/14/2018. Abdominopelvic CT from 2009. TECHNIQUE: CT scan of the abdomen and pelvis performed using helical scanning technique with dynamic intravenous contrast injection. No oral contrast. Images reviewed with lung, soft tissue, and bone windows. Reconstructed coronal and sagittal MPR images reviewed. Delayed images for evaluation of the urinary system also acquired. All images stored on PACS. All CT scanners at this facility use dose modulation, iterative reconstruction, and/or weight based d osing when appropriate to reduce radiation dose to as low as reasonably achievable (ALARA). [facility]: Dose Right [facility]: CareDose [facility]: Dose Right [facility]: Teradose 4D [facility]: Penemarie K Murphy CONTRAST TYPE AND DOSE: contrast/concentration: Isovue 350.00 mg/ml; Total Contrast Delivered: 100.0 ml; Total Saline Delivered: 42.0 ml RENAL FUNCTION: None required. The patient is less than 50 years old. RADIATION DOSE: CT Rad equipment meets quality standard of care and radiation dose reduction techniq ues were employed. CTDIvol: 18.9 mGy. DLP: 2414 mGy-cm.. LIMITATIONS: None. FINDINGS: LOWER CHEST: Please refer to recently performed full chest CT dictation. Numerous lung ma sses and nodules are present. There is collapse of the right lower lobe with at least moderate right pleural effusion. LIVER: Normal size. No masses. No dilated ducts. SPLEEN: Normal size. No focal lesions. PANCREAS: No masses. No significant calcifications. No adjacent inflammation or peripancreatic fluid collections. Pancreatic duct not dilated. GALLBLADDER: No identified stones by CT criteria. No inflammatory changes to suggest cholecystitis. ADRENAL GLANDS: No significant masses or asymmetry. RIGHT KIDNEY AND URETER: No solid masses. No significant calcification. No hydronephrosis or hydroure ter. LEFT KIDNEY AND URETER: No solid masses. No significant calcification. No hydronephrosis or hydrouret er. AORTA AND VESSELS: No aneurysm. No dissection. Renal arteries, SMA, celiac without stenosis. RETROPERITONEUM: No retroperitoneal adenopathy, hemorrhage or masses. BOWEL AND PERITONEAL CAVITY: No mechanical bowel obstruction. Stomach is mildly distended with debri s. There is a small hiatal hernia. Moderate proximal colonic stool. No evidence of ascites or abno rmal gas. No bulky mesenteric implants or adenopathy although there are stable scattered nodes measu ring up to 8 mm short axis right lower quadrant. APPENDIX: Normal. PELVIS: Streak artifact from left hip instrumentation mildly limits. No gross pelvic mass or fluid. ABDOMINAL WALL: No masses. No hernias. BONES: Heterogeneous sclerotic lesion in the T12 vertebral body, not seen in 2010. OTHER: No other significant finding. IMPRESSION: 1. Sclerotic bone lesion T12 vertebral body. Potential metastatic focus. No other deann dence of abdominopelvic metastatic disease. 2. Extensive metastatic disease in the chest, recently d etailed on chest CT examination. TECHNICAL DOCUMENTATION: JOB ID: [id number] Quality ID # [id number]: Final reports with documentation of one or more dose reduction techniques (e.g., Au tomated exposure control, adjustment of the mA and/or kV according to patient size, use of iterative reconstruction technique) 2010 [employer]- All Rights Reserved Reading location - IP/workstation name: [email or web address]
--- NOTE | 2018-04-16 13:06 | PDOC PROGRESS REPORT ---
Subjective Progress Note for:: 04/16/18 Subjective:: Pt doing better, today had long discussion w/ pt about disease status, discussion w/ Dr. Sarmiento at [facility], spent >40min in discussion. Pain better controlled, pt feels like she can go home on oral pain meds now Reason For Visit: HEMOPTOSIS, LUNG MASS Physical Exam Vital Signs: Temp Pulse Resp BP Pulse Ox 98.1 F 111 H 18 144/84 H 96 04/16/18 07:17 04/16/18 08:58 04/16/18 08:58 04/16/18 07:17 04/16/18 08:58 Intake & Output 04/15/18 04/16/18 04/17/18 06:59 06:59 06:59 Intake Total 0 3237 Output Total 0 1200 300 Balance 0 2037 -300 Weight 103.2 kg 107.3 kg General appearance: PRESENT: no acute distress, well-developed, well-nourished Head exam: PRESENT: atraumatic, normocephalic Eye exam: PRESENT: conjunctiva pink, EOMI, PERRLA. ABSENT: scleral icterus Ear exam: PRESENT: normal external ear exam Mouth exam: PRESENT: moist, tongue midline Neck exam: ABSENT: carotid bruit, JVD, lymphadenopathy, thyromegaly Respiratory exam: PRESENT: clear to auscultation arron. ABSENT: rales, rhonchi, wheezes Cardiovascular exam: PRESENT: RRR. ABSENT: diastolic murmur, rubs, systolic murmur Pulses: PRESENT: normal dorsalis pedis pul Vascular exam: PRESENT: normal capillary refill GI/Abdominal exam: PRESENT: normal bowel sounds, soft. ABSENT: distended, guarding, mass, organolmegaly, rebound, tenderness Rectal exam: PRESENT: deferred Extremities exam: PRESENT: full ROM. ABSENT: calf tenderness, clubbing, pedal edema Neurological exam: PRESENT: alert, awake, oriented to person, oriented to place , oriented to time, oriented to situation, CN II-XII grossly intact. ABSENT: motor sensory deficit Psychiatric exam: PRESENT: appropriate affect, normal mood. ABSENT: homicidal ideation, suicidal ideation Skin exam: PRESENT: dry, intact, warm. ABSENT: cyanosis, rash Results Laboratory Results: 04/16/18 04:54 04/16/18 04:54 04/16/18 04/16/18 04:54 04:54 WBC 9.1 RBC 3.42 L Hgb 8.3 L Hct 25.6 L MCV 75 L MCH 24.3 L MCHC 32.5 RDW 16.7 H Plt Count 270 Seg Neutrophils % 66.4 Lymphocytes % 17.2 Monocytes % 14.0 H Eosinophils % 1.9 Basophils % 0.5 Absolute Neutrophils 6.0 Absolute Lymphocytes 1.6 Absolute Monocytes 1.3 Absolute Eosinophils 0.2 Absolute Basophils 0.0 Sodium 137.0 Potassium 4.2 Chloride 103 Carbon Dioxide 20 L Anion Gap 14 BUN 5 L Creatinine 0.57 Est GFR ( Amer) > 60 Est GFR (Non-Af Amer) > 60 Glucose 121 H Calcium 8.7 Impressions: Chest/Abdomen CTA 04/14/18 21:50 IMPRESSION: 1. No pulmonary embolus identified. 2. Dominant lung mass in the right upper lobe measuring 9.1 cm in greatest dimension as well as a second large mass in the lingula measuring 7.4 cm. There are also numerous pulmonary nodules throughout the lungs bilaterally. These findings are concerning for metastatic disease. 3. There is a large AP window mediastinal lymph node measuring 3.1 cm in greatest dimension. 4. There is an enhancing right hepatic nodule of indeterminate etiology measuring 3.1 cm in greatest dimension. Correlation with three-phase hepatic CT could provide additional characterization. 5. Groundglass opacity surrounding the right upper lobe mass. This may be related to bronchial obstruction and developing postobstructive pneumonia. 6. Small right pleural effusion. This exam was performed according to our departmental dose-optimization program, which includes automated exposure control, adjustment of the mA and/or kV according to patient size and/or use of iterative reconstruction technique. Abdomen/Pelvis CT 04/15/18 00:00 IMPRESSION: 1. Sclerotic bone lesion T12 vertebral body. Potential metastatic focus. No other evidence of abdominopelvic metastatic disease. 2. Extensive metastatic disease in the chest, recently detailed on chest CT examination. Chest X-Ray 04/15/18 13:00 IMPRESSION: As above. Assessment & Plan - Diagnosis (1) Acute neoplasm-related pain Is this a current diagnosis for this admission?: Yes Plan: D/c home today on dilaudid and oxycontin (2) Metastatic sarcoma Is this a current diagnosis for this admission?: Yes Plan: Treatment orders placed, likely start next week - Time Time Spent with patient: 35 or more minutes Within: within 24 hours
[2018-04-16 13:43] VITALS: BP 125/80
[2018-04-16] MEDS: OXYCODONE HCL SR 10 MG TABLET PO SCH (14:07)
--- NOTE | 2018-04-16 16:43 | PDOC DISCHARGE SUMMARY ---
General - Admit/Disc Date/PCP Admission Date/Primary Care Provider: 04/15/18 01:06 LYUDMILA MURRELL MD Discharge Date: 04/16/18 - Discharge Diagnosis (1) Hemoptysis Is this a current diagnosis for this admission?: Yes Summary: Resolved. Due to pulmonary metastasis. (2) Lung malignancy Is this a current diagnosis for this admission?: Yes Summary: Likely mets from sarcoma. Pain is controlled on PO medication. (3) Metastatic sarcoma Is this a current diagnosis for this admission?: Yes Summary: Pain is controlled with PO dilaudid. (4) Pleuritic pain Is this a current diagnosis for this admission?: Yes Summary: Pain is controlled with PO dilaudid. - Additional Information Resuscitation Status: Full Code Discharge Diet: Diabetic Discharge Activity: Activity As Tolerated, Balance Activity w/Rest, No Driving Prescriptions: Hydromorphone HCl [Dilaudid 2 mg Tablet] 4 mg PO Q3HP PRN #60 tablet PRN Reason: Ipratropium/Albuterol Sulfate [Duoneb 3 ml Ampul] 3 ml NEB RTQ8 30 Days vial[facility] Levofloxacin [Levaquin 500 mg Tablet] 500 mg PO QHS #4 tablet Polyethylene Glycol 3350 [Miralax Powder 17 gm/Packet] 17 gm PO DAILY #30 powd.pack Home Medications: Alprazolam [Xanax 0.5 mg Tablet] 0.5 mg PO DAILYP PRN 04/15/18 Dronabinol [Marinol 2.5 mg Capsule] 2.5 mg PO Q6HP PRN 04/15/18 Levothyroxine Sodium [Synthroid 0.15 mg Tablet] 0.15 mg PO ACBRKFST 04/15/18 Oxycodone HCl [Oxycontin] 10 mg PO Q12HP PRN 04/15/18 Zolpidem Tartrate [Ambien] 10 mg PO HSP PRN 04/15/18 Hydromorphone HCl [Dilaudid 2 mg Tablet] 4 mg PO Q3HP PRN #60 tablet 04/16/18 Ipratropium/Albuterol Sulfate [Duoneb 3 ml Ampul] 3 ml NEB RTQ8 30 Days vial.neb 04/16/18 Levofloxacin [Levaquin 500 mg Tablet] 500 mg PO QHS #4 tablet 04/16/18 Polyethylene Glycol 3350 [Miralax Powder 17 gm/Packet] 17 gm PO DAILY #30 powd.pack 04/16/18 History of Present Illness History of Present Illness: COLTON ESCALONA is a 37 year old female with a past medical history of hypothyroidism, soft tissue sarcoma, status post right BKA, 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 Patient presents with acute onset of right-sided chest pain, shortness of breath and small volume hemoptysis. Pain was stabbing and constant to the right upper chest worsened with breathing, she denies previous episode. In the emergency room she has a CTA negative for common emboli but notable for multiple large bilateral lung masses. No further episodes of hemoptysis, pain is controlled with IV Dilaudid , and referred to the hospitalist for admission. Patient denies recent change in medications she is not currently on chemotherapy secondary to hip replacement with follow-up radiation. Oncologist consulted. Hospital Course Hospital Course: The patient was admitted to a medical bed. Dr. Ham was consulted for oncology. Initially the patient required IV dilaudid to control her pain. However, this was able to be changed over to oral Dilaudid. The patient is feeling much better. She will discharge to home to follow up with Dr. Ham. Physical Exam Vital Signs: Temp Pulse Resp BP Pulse Ox 98.1 F 111 H 18 125/80 96 04/16/18 13:40 04/16/18 13:40 04/16/18 13:40 04/16/18 13:40 04/16/18 13:40 Intake & Output 04/15/18 04/16/18 04/17/18 06:59 06:59 06:59 Intake Total 0 3237 Output Total 0 1200 300 Balance 0 2037 -300 Weight 103.2 kg 107.3 kg General appearance: PRESENT: no acute distress, cooperative Respiratory exam: PRESENT: other - No increased work of breathing. No wheezes, rales, or rhonchi. Not tactile fremitus. Cardiovascular exam: PRESENT: RRR. ABSENT: gallop, rubs, systolic murmur Pulses: PRESENT: normal femoral pulses, normal dorsalis pedis pul GI/Abdominal exam: PRESENT: normal bowel sounds, soft. ABSENT: hernia, mass, organolmegaly, tenderness Extremities exam: ABSENT: clubbing, joint swelling, tenderness Neurological exam: PRESENT: alert, awake, oriented to person, oriented to place , oriented to time, oriented to situation, CN II-XII grossly intact. ABSENT: motor sensory deficit Psychiatric exam: PRESENT: appropriate affect, normal mood Skin exam: PRESENT: dry, intact, warm Results Laboratory Results: 04/16/18 04:54 04/16/18 04:54 04/16/18 04/16/18 04:54 04:54 WBC 9.1 RBC 3.42 L Hgb 8.3 L Hct 25.6 L MCV 75 L MCH 24.3 L MCHC 32.5 RDW 16.7 H Plt Count 270 Seg Neutrophils % 66.4 Lymphocytes % 17.2 Monocytes % 14.0 H Eosinophils % 1.9 Basophils % 0.5 Absolute Neutrophils 6.0 Absolute Lymphocytes 1.6 Absolute Monocytes 1.3 Absolute Eosinophils 0.2 Absolute Basophils 0.0 Sodium 137.0 Potassium 4.2 Chloride 103 Carbon Dioxide 20 L Anion Gap 14 BUN 5 L Creatinine 0.57 Est GFR ( Amer) > 60 Est GFR (Non-Af Amer) > 60 Glucose 121 H Calcium 8.7 Impressions: Chest/Abdomen CTA 04/14/18 21:50 IMPRESSION: 1. No pulmonary embolus identified. 2. Dominant lung mass in the right upper lobe measuring 9.1 cm in greatest dimension as well as a second large mass in the lingula measuring 7.4 cm. There are also numerous pulmonary nodules throughout the lungs bilaterally. These findings are concerning for metastatic disease. 3. There is a large AP window mediastinal lymph node measuring 3.1 cm in greatest dimension. 4. There is an enhancing right hepatic nodule of indeterminate etiology measuring 3.1 cm in greatest dimension. Correlation with three-phase hepatic CT could provide additional characterization. 5. Groundglass opacity surrounding the right upper lobe mass. This may be related to bronchial obstruction and developing postobstructive pneumonia. 6. Small right pleural effusion. This exam was performed according to our departmental dose-optimization program, which includes automated exposure control, adjustment of the mA and/or kV according to patient size and/or use of iterative reconstruction technique. Abdomen/Pelvis CT 04/15/18 00:00 IMPRESSION: 1. Sclerotic bone lesion T12 vertebral body. Potential metastatic focus. No other evidence of abdominopelvic metastatic disease. 2. Extensive metastatic disease in the chest, recently detailed on chest CT examination. Chest X-Ray 04/15/18 13:00 IMPRESSION: As above. Qualifiers - * PATIENT BEING DISCHARGED WITH ANY OF THE FOLLOWING DIAGNOSIS: No
== END 2018-04-16 15:13 | disposition home or self-care (01) | DRG 181 ==
LOC: ER 20:47 → EH 04-15 01:06 → 3W 04-15 03:11
PROVIDERS: ADMIT Internal Medicine; ATTEND Internal Medicine
DX: C78.00 Secondary malignant neoplasm of unspecified lung (principal); C79.51 Secondary malignant neoplasm of bone; R04.2 Hemoptysis; C49.9 Malignant neoplasm of connective and soft tissue, unspecified; R07.9 Chest pain, unspecified; G89.3 Neoplasm related pain (acute) (chronic); E03.9 Hypothyroidism, unspecified; Z96.642 Presence of left artificial hip joint; Z89.511 Acquired absence of right leg below knee
CPT/HCPCS: 36415; 71045; 71275; 74177; 80048; 80053; 82550; 82553; 84484; 84703; 85025; 85610; 93005; 93010; 96361; 96374; 96375; 99291; J1170; J1200; J1644; J2060; J2270; J3490; J7030; J7620

== ENCOUNTER 2018-05-02 19:29 | Emergency (ER) | payer OTHER ==
--- NOTE | 2018-05-02 19:55 | ER Document Report ---
ED Medical Screen (RME) - General Chief Complaint: Psych Problem Stated Complaint: PSYCH PROBLEM Time Seen by Provider: 05/02/18 19:52 Mode of Arrival: Ambulatory Information source: Patient, Relative Notes: 37-year-old female with bipolar disorder, sarcoma currently undergoing chemotherapy and radiation therapy presents from 's office who is concerned for the patient having a manic episode. Per the the patient has not been sleeping, is constantly repeating herself and is constantly fidgeting. Her oncologist was concerned that steroids could be exacerbating this. Patient denies suicidal ideation, homicidal ideation, auditory and visual hallucinations. I have greeted and performed a rapid initial assessment of this patient. A comprehensive ED assessment and evaluation of the patient, analysis of test results and completion of medical decision making process we will be contacted by additional ED providers. PHYSICAL EXAMINATION: GENERAL: Well-appearing, in wheelchair HEAD: Atraumatic, normocephalic. EYES: Pupils equal round extraocular movements intact, conjunctiva are normal. LUNGS: No respiratory distress Musculoskeletal: Right BKA NEUROLOGICAL: Alert and oriented 3 PSYCH: Pressured speech, denies suicidal, homicidal ideation. Denies visual and auditory hallucinations. SKIN: Warm, Dry, normal turgor, no rashes or lesions noted. TRAVEL OUTSIDE OF THE [place] IN LAST 30 DAYS: No - Related Data Allergies/Adverse Reactions: No Known Allergies Allergy (Unverified 10/15/16 11:10) Past Medical History - Social History Chew tobacco use (# tins/day): No Frequency of alcohol use: None Drug Abuse: None Renal/ Medical History: Denies: Hx Peritoneal Dialysis Malignancy Medical History: Reports: Hx Lung Cancer Past Surgical History: Reports: Hx Orthopedic Surgery - RLE amputation - Immunizations Hx Diphtheria, Pertussis, Tetanus Vaccination: No History of Influenza Vaccine for 05/2017 - 10/2017 Season: Yes Influenza Administration Date for 05/2017 - 10/2017 Season: 05/26/17 Physical Exam - Vital signs Vitals: Temp Pulse Resp BP Pulse Ox 98.9 F 134 H 18 156/104 H 97 05/02/18 19:36 05/02/18 19:36 05/02/18 19:36 05/02/18 19:36 05/02/18 19:36 Course - Vital Signs Vital signs: Temp Pulse Resp BP Pulse Ox 98.9 F 134 H 18 156/104 H 97 05/02/18 19:36 05/02/18 19:36 05/02/18 19:36 05/02/18 19:36 05/02/18 19:36 Doctor's Discharge - Discharge Referrals: KARENA CASTILLO, PARebekahC [Primary Care Provider] - Follow up as needed
--- NOTE | 2018-05-02 20:39 | ER Document Report ---
ED General - General Chief Complaint: Psych Problem Stated Complaint: PSYCH PROBLEM Time Seen by Provider: 05/02/18 19:52 Mode of Arrival: Ambulatory Notes: Patient is a 37-year-old female with metastatic soft tissue carcinoma that presents to the emergency department for chief complaint of combative behavior, and hallucinations. History is provided by the patient's who is at bedside as the patient is not willing to answer questions at this time due to her altered state. reports that the patient has been going through quite a lot in regards to her recent changes and prognosis in regards to her metastatic soft, with metastasis, she is currently on prednisone, and had an alteration in her chemotherapy because it metastasized to her lungs. Over the last 4 days she has been using CPAP, and it has been difficult for her to sleep , and today she was having hallucinations, being combative, and difficult to cooperate. At this point he decided to bring her to the emergency department. Past Medical History: Soft tissue carcinoma with metastasis to the lungs, bipolar disorder Past Surgical History: Right below the knee amputation, left hip replacement Social History: Denies tobacco, alcohol or drug use. Family History: Reviewed and noncontributory for presenting illness Allergies: Reviewed, see documented allergy list. REVIEW OF SYSTEMS: Unless otherwise stated in this report the patient's positive and negative responses for review of systems for constitutional, eyes, ENT, cardiovascular, respiratory, gastrointestinal, neurological, genitourinary, musculoskeletal, and integumentary systems and related systems to the presenting problem are either as stated in the HPI or were not pertinent or were negative for the symptoms and/or complaints related to the presenting medical problem. PHYSICAL EXAMINATION: Vital signs reviewed, nursing noted reviewed. GENERAL: Well-appearing, well-nourished and in no acute distress. HEAD: Atraumatic, normocephalic. EYES: Eyes appear normal, extraocular movements intact, sclera anicteric, conjunctiva are normal. ENT: nares patent, oropharynx clear without exudates. Moist mucous membranes. NECK: Normal range of motion, supple without lymphadenopathy LUNGS: Breath sounds clear to auscultation bilaterally and equal. No wheezes rales or rhonchi. HEART: Heart rate tachycardic, regular rhythm without murmurs ABDOMEN: Soft, nontender, normoactive bowel sounds. No rebound, guarding, or rigidity. No masses appreciated. EXTREMITIES: Nontender, good range of motion, no pitting or edema. NEUROLOGICAL: No focal neurological deficits. Moves all extremities spontaneously Motor and sensory grossly intact on exam. PSYCH: Patient is not cooperative, having flight of ideas. SKIN: Warm, Dry, normal turgor, no rashes or lesions noted on exposed skin TRAVEL OUTSIDE OF THE [place] IN LAST 30 DAYS: No - Related Data Allergies/Adverse Reactions: No Known Allergies Allergy (Unverified 10/15/16 11:10) Past Medical History - General Information source: Patient, Relative - Social History Smoking Status: Never Smoker Chew tobacco use (# tins/day): No Frequency of alcohol use: None Drug Abuse: None Family History: Reviewed & Not Pertinent Patient has suicidal ideation: No Patient has homicidal ideation: No Renal/ Medical History: Denies: Hx Peritoneal Dialysis Malignancy Medical History: Reports: Hx Lung Cancer Psychiatric Medical History: Reports: Hx Bipolar Disorder Past Surgical History: Reports: Hx Orthopedic Surgery - RLE amputation - Immunizations Hx Diphtheria, Pertussis, Tetanus Vaccination: No Physical Exam - Vital signs Vitals: Temp Pulse Resp BP Pulse Ox 98.9 F 134 H 18 156/104 H 97 05/02/18 19:36 05/02/18 19:36 05/02/18 19:36 05/02/18 19:36 05/02/18 19:36 Course - Re-evaluation Re-evalutation: 05/02/18 22:22 Patient seen and examined, unable to obtain significant history from the patient herself, as she is currently acutely psychotic or manic, will work the patient up from a psychiatric standpoint, for possible medical clearance, patient does have no neutropenia, from recent chemotherapy treatments, no reported fevers, she is not febrile in the emergency department. She did receive a Neulasta injection. Her blood work was reviewed and, demonstrated neutropenia, but this is known, and the patient did receive her Neulasta injection, rest of her blood work was essentially unremarkable. Toxicology screening was negative. Patient was medicated with 5 mg of IM Haldol, 2 mg of IM Ativan, and 50 mg of IM Benadryl, due to her potential threat to herself and others. 05/02/18 23:23 Pending EKG, patient still restless, not willing to stay still, will order an additional 2 mg of IM Ativan, at this point will need an EKG to order more antipsychotic medications. - Vital Signs Vital signs: Temp Pulse Resp BP Pulse Ox 98.9 F 134 H 18 156/104 H 97 05/02/18 19:36 05/02/18 19:36 05/02/18 19:36 05/02/18 19:36 05/02/18 19:36 - Laboratory Result Diagrams: 05/02/18 21:20 05/02/18 21:20 Laboratory results interpreted by me: 05/02/18 05/02/18 21:20 21:20 WBC 1.2 L* Hgb 11.3 L Hct 34.7 L MCV 76 L D MCH 24.5 L RDW 20.7 H Seg Neuts % (Manual) 36 L Lymphocytes % (Manual) 50 H Abs Neuts (Manual) 0.4 L Potassium 3.5 L Glucose 135 H Direct Bilirubin 0.5 H AST 76 H ALT 121 H Salicylates < 1.0 L Acetaminophen < 10 L Discharge - Discharge Clinical Impression: Acute psychosis Neutropenia Qualifiers: Neutropenia type: unspecified Qualified Code(s): D70.9 - Neutropenia, unspecified Condition: Stable Referrals: KARENA CASTILLO PA-C [ALLIED HEALTH PROFESSIONAL] - Follow up as needed
[2018-05-02] MEDS ORDERED: HALOPERIDOL LACTATE INJ 5 MG/1 ML VIAL IM ONE (21:01)
[2018-05-02] MEDS ORDERED: DIPHENHYDRAMINE HCL 50 MG/ML VIAL IM ONE (21:02)
[2018-05-02 21:32] LABS: HEMATOCRIT 34.7 % (36.0-47.0); HEMOGLOBIN 11.3 g/dL (12.0-15.5); MEAN CORPUSCULAR HEMOGLOBIN 24.5 pg (27.0-33.4); MEAN CORPUSCULAR HGB CONC 32.4 g/dL (32.0-36.0); PLATELET COUNT 168 10^3/uL (150-450); RED CELL DISTRIBUTION WIDTH 20.7 % (11.5-14.0)
[2018-05-02] MEDS ORDERED: LORAZEPAM INJ 2 MG/1 ML VIAL IM ONE ×2 (21:37→23:22)
[2018-05-02 21:44] LABS: ACETAMINOPHEN < 10 ug/mL (10-30); ALANINE AMINOTRANSFERASE 121 U/L (9-52); ALBUMIN 3.8 g/dL (3.5-5.0); ALCOHOL < 10 mg/dL (NONE DETECTED); ALKALINE PHOSPHATASE 100 U/L (38-126); ANION GAP 15 (5-19); ASPARTATE AMINO TRANSFERASE 76 U/L (14-36); BILIRUBIN,DIRECT 0.5 mg/dL (0.0-0.4); BILIRUBIN,TOTAL 0.8 mg/dL (0.2-1.3); BLOOD UREA NITROGEN 10 mg/dL (7-20); CALCIUM 9.3 mg/dL (8.4-10.2); CARBON DIOXIDE 22 mmol/L (22-30); CHLORIDE 104 mmol/L (98-107); GLUCOSE 135 mg/dL (75-110); POTASSIUM 3.5 mmol/L (3.6-5.0); SALICYLATE < 1.0 mg/dL (2.0-20.0); SODIUM 140.7 mmol/L (137-145); TOTAL PROTEIN 7.4 g/dL (6.3-8.2)
[2018-05-02 22:00] LABS: MEAN CORPUSCULAR VOLUME 76 fl (80-97)
[2018-05-02 22:03] LABS: ABSOLUTE LYMPHOCYTES# (MANUAL) 0.6 10^3/uL (0.5-4.7); ABSOLUTE MONOCYTES # (MANUAL) 0.1 10^3/uL (0.1-1.4); ABSOLUTE NEUTROPHILS# (MANUAL) 0.4 10^3/uL (1.7-8.2); BASOPHILS % (MANUAL) 0 % (0-2); EOSINOPHILS % (MANUAL) 4 % (0-6); LYMPHOCYTES % (MANUAL) 50 % (13-45); MONOCYTES % (MANUAL) 10 % (3-13); SEGMENTED NEUTROPHILS % (MAN) 36 % (42-78); TOTAL CELLS COUNTED 50
[2018-05-02 22:05] LABS: ANISOCYTOSIS 2+; HYPOCHROMASIA SLIGHT; PLATELET COMMENT ADEQUATE; POIKILOCYTOSIS SLIGHT; TOXIC GRANULATION SLIGHT
[2018-05-02 22:07] LABS: WHITE BLOOD COUNT 1.2 10^3/uL (4.0-10.5)
[2018-05-03 04:53] LABS: APPEARANCE,URINE CLEAR; BILIRUBIN,URINE NEGATIVE (NEGATIVE); GLUCOSE, URINE NEGATIVE (NEGATIVE); KETONES,URINE 20 mg/dL (NEGATIVE); LEUKOCYTE ESTERASE,URINE NEGATIVE (NEGATIVE); NITRITE,URINE NEGATIVE (NEGATIVE); PROTEIN,URINE 30 mg/dL (NEGATIVE); URINE SPECIFIC GRAVITY 1.023
[2018-05-03 04:54] LABS: COLOR,URINE DARK YELLOW
[2018-05-03 05:03] LABS: URINE AMPHETAMINES SCREEN NEGATIVE; URINE BARBITURATES SCREEN NEGATIVE; URINE BENZODIAZEPINES SCREEN UNCONFIRMED POSITIVE; URINE COCAINE SCREEN NEGATIVE; URINE MARIJUANA (THC) SCREEN UNCONFIRMED POSITIVE; URINE METHADONE SCREEN NEGATIVE; URINE PHENCYCLIDINE SCREEN NEGATIVE
[2018-05-03] MEDS ORDERED: LORAZEPAM INJ 2 MG/1 ML VIAL IM ONE (05:16)
--- NOTE | 2018-05-03 10:07 | EKG REPORT ---
SEVERITY:- BORDERLINE ECG - SINUS TACHYCARDIA BORDERLINE T ABNORMALITIES, INFERIOR LEADS : Confirmed by: Raul Laguna MD 03-May-2018 10:06:58
--- NOTE | 2018-05-03 10:09 | ER Document Report ---
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 The patient received an infusion of Latruda, steroids & Bendryl 2 days ago in the oncology office. She received a Neulasta injection 1 day ago in the oncology office. She was brought in last night because of extreme agitation and concerns for acute adriel. The patient does have a history of bipolar affective disorder with adriel in the past. Patient was brought in by her who states that this is the worst episode she has ever had. The patient did require significant sedation last night. states she did sleep for a few hours and is actually better this morning. Patient was up into the bathroom (she uses a wheelchair). She is alert and oriented 3. She is mentating although appears to have pressured speech and flight of ideas. They deny fever, cough, shortness of breath (in the last day) , abdominal pain. She has had thrush with ulcers and is currently receiving fluconazole. Physical exam: GENERAL: 37-year-old female, alert and oriented 3, flight of ideas. Her blood pressure is 129/87, her temperature is 97.5, her heart rate is 122, her respiratory rate is 18 HEAD: Atraumatic, normocephalic. EYES: Pupils equal round and reactive to light, extraocular movements intact, sclera anicteric, conjunctiva are normal. ENT: TMs normal, nares patent, oropharynx shows thrush. Moist mucous membranes. NECK: Normal range of motion, supple without obvious mass or JVD. LUNGS: Breath sounds clear to auscultation bilaterally and equal. No wheezes rales or rhonchi. HEART: Tachycardia without murmurs, rubs or gallops. ABDOMEN: Soft, normoactive bowel sounds. No tenderness to palpation. No guarding, no rebound. No masses appreciated. EXTREMITIES: Right BKA; stump is clear. She has scar from left hip replacement : Wound site is clear. Lateral to this, she does have a radiation burn (she received radiation in mid February). There is blistering. There is no obvious infection. NEUROLOGICAL: Cranial nerves II through XII grossly intact. Normal speech, moving all extremities. PSYCH: Normal mood, normal affect. SKIN: Radiation burn is noted above 05/03/18 10:07 The patient's medical issues are as follows: Neutropenia: Patient just had chemotherapy and is followed by Dr. Doe. She did receive a Neulasta shot yesterday. I discussed the results of both white counts with Dr. Doe and he felt that this was to be expected in the Neulasta will take a few days to kick in. The patient has had no fevers, cough , burning on urination. She has no evidence of infections anywhere on her body. She does have a radiation burn to the left thigh but it does not appear infected. Dr. Doe will follow this patient in his office. I had spoken to him twice today that this patient. Tachycardia: Patient is afebrile and has no evidence of infection. She does report having tachycardia in the past. Her thyroid function tests were checked and they are normal. EKG shows sinus tachycardia with no abnormal ST/T-wave changes. Bipolar affective disorder with adriel: Patient was able to sleep last night and is much better today. She did actually sleep during the day as well. She was evaluated by the psychology team who had some recommendations for medicines. They recommended Depakote, clonidine and BuSpar in the recommended stopping the Ativan. I had a lengthy conversation with the patient and her at the bedside regarding these recommendations. The patient seems to know these medicines well and she states that they do not agree with her and she wants to take her previous psychiatric regimen which she obtained from [facility]. She stated that she could go to walk-in clinic on Saturday and be seen by the psychiatrist. So in summary, the patient did not want the medicines at the psychiatry team here was recommending. I discussed this with the and he said he is comfortable with taking the patient home given that she is improved. He does state that she has improved. In any event, I have given the patient a prescription for these medicines just in case she decides to take the medicines when she gets home. I did discuss this with Dr. Doe and he asked me to fax him the recommended medications to his office (which I have done). I have evaluated the patient multiple times throughout the day and she was hemodynamically stable at the time of discharge. 05/03/18 19:57 05/03/18 20:06
[2018-05-03] MEDS ORDERED: ALBUTEROL SULFATE HFA (90 MCG/PUFF) 8 GM MDI (1 MDI/ER DISP) IH PRN (10:10)
[2018-05-03] MEDS ORDERED: SILVER SULFADIAZINE 1% CREAM 25 GM TP ONE (10:10)
--- NOTE | 2018-05-03 10:34 | RADIOLOGY REPORT (SQ) ---
EXAM DESCRIPTION: CT HEAD WITHOUT COMPLETED DATE/TIME: 05/03/2018 10:16 am REASON FOR STUDY: altered mental status COMPARISON: None. TECHNIQUE: Axial images acquired through the brain without intravenous contrast. Images reviewed wi th bone, brain and subdural windows. Images stored on PACS. All CT scanners at this facility use dose modulation, iterative reconstruction, and/or weight based d osing when appropriate to reduce radiation dose to as low as reasonably achievable (ALARA). [facility]: Dose Right [facility]: CareDose [facility]: Dose Right [facility]: Teradose 4D [facility]: ShowNearby RADIATION DOSE: CT Rad equipment meets quality standard of care and radiation dose reduction techniq ues were employed. CTDIvol: 53.2 mGy. DLP: 937 mGy-cm. mGy. LIMITATIONS: None. FINDINGS: VENTRICLES: Normal size and contour. CEREBRUM: No masses. No hemorrhage. No midline shift. No evidence for acute infarction. Normal gra y/white matter differentiation. No areas of low density in the white matter. CEREBELLUM: No masses. No hemorrhage. No alteration of density. No evidence for acute infarction. EXTRAAXIAL SPACES: No fluid collections. No masses. ORBITS AND GLOBE: No intra- or extraconal masses. Normal contour of globe without masses. CALVARIUM: No fracture. PARANASAL SINUSES: Retention cyst right maxillary sinus. Otherwise ,no abnormality of the paranasal sinuses. SOFT TISSUES: No mass or hematoma. OTHER: No other significant finding. IMPRESSION: NORMAL NONCONTRAST CT OF THE BRAIN. EVIDENCE OF ACUTE STROKE: NO. COMMENT: Quality ID # [id number]: Final reports with documentation of one or more dose reduction techniques (e.g., Automated exposure control, adjustment of the mA and/or kV according to patient size, use of iterative reconstruction technique) TECHNICAL DOCUMENTATION: JOB ID: [id number] SC-69 2010 [employer]- All Rights Reserved Reading location - IP/workstation name: [email or web address]
--- NOTE | 2018-05-03 11:26 | RADIOLOGY REPORT (SQ) ---
EXAM DESCRIPTION: CHEST SINGLE VIEW COMPLETED DATE/TIME: 05/03/2018 10:42 am REASON FOR STUDY: altered ms COMPARISON: 04/15/2018. EXAM PARAMETERS: NUMBER OF VIEWS: One view. TECHNIQUE: Single frontal radiographic view of the chest acquired. RADIATION DOSE: NA LIMITATIONS: None. FINDINGS: LUNGS AND PLEURA: Bilateral pulmonary masses demonstrating similar size in number. Persis tent infiltrate at right lung base with suggestion of decrease in right pleural thickening or effusio n. MEDIASTINUM AND HILAR STRUCTURES: No masses. Contour normal. HEART AND VASCULAR STRUCTURES: The heart is normal. The pulmonary vasculature is normal. . BONES: No acute findings. HARDWARE: None in the chest. IMPRESSION: Interval decrease in right pleural effusion. Residual right basilar atelectasis. Bilat eral pulmonary masses consistent with metastatic disease. TECHNICAL DOCUMENTATION: JOB ID: [id number] SC-69 2010 [employer]- All Rights Reserved Reading location - IP/workstation name: [email or web address]
--- NOTE | 2018-05-03 13:40 | PSYCHOLOGICAL NOTE ---
Psych Note - Psych Note Psych Note: Reason for Consult: manic episode 37-year-old female with bipolar disorder, sarcoma currently undergoing chemotherapy and radiation therapy presents from 's office who is concerned for the patient having a manic episode. Per the the patient has not been sleeping, is constantly repeating herself and is constantly fidgeting. Her oncologist was concerned that steroids could be exacerbating this. Patient denies suicidal ideation, homicidal ideation, auditory and visual hallucinations. Clinician observed patient to have difficulty maintaining attention, organizing thoughts and articulating what she needed in a clear, concise manner. Patient was unable to articulate why she was in the hospital or any other pertinent medical history. Patient's was at bedside and was able to give a report. Mr. Gonzalez stated that he brought the patient into the ED last night because patient began to get "hyped up" and began to ramble and jump from subject to subject. He states that she became very talkative but would not stay on one subject and it was hard to keep her attention. Mr. Gonzalez states that her CPAP may have something to do with it because it blows 12 pounds of pressure in her face at one time instead of gradually increasing the pressure. Patient's also states that she has been unable to sleep for the past 3 to 4 nights, and only slept about 3-4 hours total last night. Patient's reports that patient has not attempted to harm herself or anyone else. Mr. Gonzalez reports that since patient has been undergoing chemotherapy and radiation, her mental health needs may have not been maintained consistently. Patient's reports a prior diagnosis Bipolar Disorder. Patient is alert and oriented to time and place. Patient's mood is euthymic. Thought content is not concrete at this time. Conversational speech was within normal rate, tone and prosody. Eye Contact was well maintained. Intellectual abilities appear to be in the average range. Attention and concentration are poor. Insight, judgment and impulse control are fair. Medication recommendations per [facility]'s contracted psychiatrist Dr. Nica WONG are as follows: Add depakote 500 mg 2x per day Add Clonidine .1mg 2x per day Discontinue Ativan Add Buspar 10mg 2x per day Diagnosis: 296.41 (F31.11) Bipolar I Disorder per patient report Impression/Plan: Patient is currently experiencing racing thoughts, difficulty maintaining attention and no organized, clear thought process. Awaiting medicine recommendations. Dr. Cole is performing labs. This clinician will re- evaluate in the morning. Dr. Azul was consulted and the care and management of this patient; attending physician is in agreement with recommendations and disposition.
[2018-05-03 14:34] LABS: ABSOLUTE LYMPHOCYTES (AUTO) 0.5 10^3/uL (0.5-4.7); ABSOLUTE MONOCYTES (AUTO) 0.2 10^3/uL (0.1-1.4); ABSOLUTE NEUT (AUTO) 0.2 10^3/uL (1.7-8.2); BASOPHILS % (AUTO) 1.4 % (0-2); EOSINOPHILS % (AUTO) 4.4 % (0-6); HEMATOCRIT 30.9 % (36.0-47.0); HEMOGLOBIN 10.1 g/dL (12.0-15.5); MEAN CORPUSCULAR HEMOGLOBIN 24.4 pg (27.0-33.4); MEAN CORPUSCULAR HGB CONC 32.5 g/dL (32.0-36.0); MEAN CORPUSCULAR VOLUME 75 fl (80-97); MONOCYTES % (AUTO) 16.5 % (3-13); PLATELET COUNT 122 10^3/uL (150-450); RED BLOOD COUNT 4.13 10^6/uL (3.72-5.28); RED CELL DISTRIBUTION WIDTH 20.7 % (11.5-14.0); SEGMENTED NEUTROPHILS % (AUTO) 21.7 % (42-78); TOTAL CELLS COUNTED % (AUTO) 100 %
[2018-05-03 14:36] LABS: ANION GAP 9 (5-19); BLOOD UREA NITROGEN 6 mg/dL (7-20); CALCIUM 8.7 mg/dL (8.4-10.2); CARBON DIOXIDE 28 mmol/L (22-30); CHLORIDE 102 mmol/L (98-107); GLUCOSE 87 mg/dL (75-110); POTASSIUM 3.4 mmol/L (3.6-5.0); SODIUM 138.6 mmol/L (137-145)
[2018-05-03 14:55] LABS: FREE T3 3.41 pg/mL (2.77-5.27); FREE T4 (FREE THYROXINE) 1.89 ng/dL (0.78-2.19)
[2018-05-03 15:07] LABS: ANISOCYTOSIS 2+; HYPOCHROMASIA 2+; OVALOCYTES SLIGHT; POIKILOCYTOSIS SLIGHT
[2018-05-03 15:08] LABS: PLATELET CLUMPS PRESENT; PLATELET COMMENT DECREASED; PLATELET LARGE PRESENT
[2018-05-03 15:09] LABS: THYROID STIMULATING HORMONE 2.1 uIU/mL (0.47-4.68)
[2018-05-03] MEDS ORDERED: HYDROMORPHONE HCL INJ/PF 2 MG/ML AMPULE IM ONE (15:52)
[2018-05-03] MEDS ORDERED: NYSTATIN 500000 UNIT/5 ML UDCUP PO SCH ×2 (16:15→18:00)
[2018-05-03 17:12] VITALS: BP 127/83
[2018-05-05 14:11] LABS: PATH REVIEW PATHOLOGIST REVIEWED
== END 2018-05-03 17:14 | disposition home or self-care (01) ==
LOC: ER 19:29
DX: F31.9 Bipolar disorder, unspecified (principal); D70.9 Neutropenia, unspecified; R45.1 Restlessness and agitation; B37.9 Candidiasis, unspecified
CPT/HCPCS: 93005; 99285; 96372; 36415; 84439; 80307 ×4; 83735; 84443; 85025; 80048; 80053; 81001; 84481; 71045; 70450; 93010; J1200; J1630; J1170; J2060 ×2; J3490

== ENCOUNTER → 2018-05-02 | Outpatient (CLI) | payer OTHER ==
--- NOTE | 2018-05-02 13:36 | RADIOLOGY REPORT (SQ) ---
EXAM DESCRIPTION: NM MUGA REST COMPLETED DATE/TIME: 05/02/2018 1:25 pm REASON FOR STUDY: MALIGNANT NEOPLASM OF CONNECTIVE AND SOFT TISSUE, UNSPEC (C49.9), POST CHEM C49.9 MALIGNANT NEOPLASM OF CONNECTIVE AND SOFT TISSUE, UNSP COMPARISON: None. RADIONUCLIDE AND DOSE: 26.7 mCi technetium 99m labeled red blood cells The route of agent administration: Intravenous TECHNIQUE: Following administration of the radionuclide, gated images of the heart are obtained in t hree projections. Left ventricular functional analysis performed. LIMITATIONS: None. FINDINGS: LEFT VENTRICULAR FUNCTION: EJECTION FRACTION: 79%. END-DIASTOLIC VOLUME: 86 mL. END-SYSTOLIC VOLUME: 24 mL. WALL MOTION: No focal wall motion abnormalities. OTHER: No other significant finding. IMPRESSION: NORMAL CARDIAC MUGA STUDY. NORMAL LEFT VENTRICULAR FUNCTION WITH VALUES ABOVE. TECHNICAL DOCUMENTATION: JOB ID: [id number] [employer]- All Rights Reserved Reading location - IP/workstation name: [email or web address]
== END ==
LOC: RAD 11:14
PROVIDERS: ATTEND Physician Assistant Medical
DX: Z08 Encounter for follow-up examination after completed treatment for malignant neoplasm (principal); C49.9 Malignant neoplasm of connective and soft tissue, unspecified
CPT/HCPCS: 78472; A9560; Q9969

== ENCOUNTER → 2018-06-02 | Outpatient (CLI) | payer OTHER ==
--- NOTE | 2018-06-02 19:50 | XCELERA REPORT ---
[address] [address] Upper Extremity Venous Evaluation Name: COLTON ESCALONA Age: 37 yrs Gender: Female : 1980 Patient Status: Preadmit Patient Location: Study Date: 06/02/2018 01:00 PM Procedure: Unilateral duplex scan of the right upper extremity veins was performed, including responses to compression and other maneuvers. Reason For Study: RT ARM SWELLING Ordering Physician: LYUDMILA MURRELL Performed By: Gloria Rodriguez Right Side Venous Evaluation Superficial , Cephalic vein showing echogenic, enlargement with no Colour flow. From proximal to mid arm. Otherwise normal vessel filling wall to wall, compression and augmentation as well as Colour flow down to the forearm veins. Interpretation Summary No duplex evidence of DVT or obstruction in the right upper extremity. There is sub acute superficial phlebitis in the right arm Cephalic vein. : LYUDMILA MURRELL > Timur Radford
== END ==
LOC: SP 17:03
PROVIDERS: ATTEND Internal Medicine
DX: M79.621 Pain in right upper arm (principal); M79.89 Other specified soft tissue disorders; I80.8 Phlebitis and thrombophlebitis of other sites
CPT/HCPCS: 93971

== ENCOUNTER 2018-06-03 07:51 | Day surgery (SDC) | payer OTHER ==
[~2018-06-03 07:51] MED LIST: CEFAZOLIN 1 GM/D5W RTU 1 GM/50 ML RTUPB IV ONE; CEFAZOLIN 1 GM/D5W RTU 1 GM/50 ML RTUPB IV PRN; DEXTROSE 5%-1/2 NORMAL SALINE 1,000 ML IV PRN; DIAZEPAM 5 MG TABLET ONE; DIAZEPAM 5 MG TABLET PO PRN; OXYCODONE-ACETAMINOPHEN 5-325 MG TABLET ONE; OXYCODONE-ACETAMINOPHEN 5-325 MG TABLET PO PRN
--- NOTE | 2018-06-03 08:41 | RADIOLOGY REPORT (SQ) ---
EXAM DESCRIPTION: CHEST SINGLE VIEW COMPLETED DATE/TIME: 06/03/2018 8:13 am REASON FOR STUDY: PREOP COMPARISON: 05/03/2018. EXAM PARAMETERS: NUMBER OF VIEWS: One view. TECHNIQUE: Single frontal radiographic view of the chest acquired. RADIATION DOSE: NA LIMITATIONS: None. FINDINGS: LUNGS AND PLEURA: Again seen are multiple lung masses, the largest in the right mid lung a nd left base. Small right pleural effusion. MEDIASTINUM AND HILAR STRUCTURES: No masses. Contour normal. HEART AND VASCULAR STRUCTURES: Heart normal in size. Normal vasculature. BONES: No acute findings. HARDWARE: None in the chest. OTHER: No other significant finding. IMPRESSION: MULTIPLE LUNG MASSES. SMALL RIGHT PLEURAL EFFUSION. NO SIGNIFICANT CHANGE. NO ACUTE F INDINGS. TECHNICAL DOCUMENTATION: JOB ID: [id number] [employer]- All Rights Reserved Reading location - IP/workstation name: [email or web address]
[2018-06-03 09:05] LABS: MEAN CORPUSCULAR VOLUME 80 fl (80-97); WHITE BLOOD COUNT 8.9 10^3/uL (4.0-10.5)
[2018-06-03 09:07] LABS: ANION GAP 8 (5-19); BLOOD UREA NITROGEN 12 mg/dL (7-20); CALCIUM 8.9 mg/dL (8.4-10.2); CARBON DIOXIDE 27 mmol/L (22-30); CHLORIDE 106 mmol/L (98-107); GLUCOSE 119 mg/dL (75-110); SODIUM 140.5 mmol/L (137-145)
[2018-06-03 09:14] LABS: HEMATOCRIT 28.4 % (36.0-47.0); HEMOGLOBIN 9.5 g/dL (12.0-15.5); MEAN CORPUSCULAR HEMOGLOBIN 26.9 pg (27.0-33.4); MEAN CORPUSCULAR HGB CONC 33.5 g/dL (32.0-36.0); PLATELET COUNT 132 10^3/uL (150-450); RED BLOOD COUNT 3.53 10^6/uL (3.72-5.28)
[2018-06-03] MEDS ORDERED: MIDAZOLAM 2 MG/2 ML INJ ONE (09:19)
[2018-06-03] MEDS ORDERED: LIDOCAINE 0.5% INJ-PF (5 MG/ML) 50 ML SDV ONE ×2 (09:19→10:31)
[2018-06-03] MEDS ORDERED: FENTANYL CITRATE INJ/PF 100 MCG/2 ML AMPUL ONE ×2 (09:19→10:33)
[2018-06-03] MEDS ORDERED: BACITRACIN INJ 50,000 UNIT VIAL ONE (09:20)
[2018-06-03] MEDS ORDERED: CEFAZOLIN INJ 1 GM VIAL ONE (11:00)
[2018-06-03 11:20] LABS: RED CELL DISTRIBUTION WIDTH 25.8 % (11.5-14.0)
[2018-06-03 11:22] LABS: PATH REVIEW PATHOLOGIST REVIEWED
--- NOTE | 2018-06-03 11:31 | Discharge Summary ---
Discharge Summary (SDC) - Discharge Final Diagnosis: Metastatic synovial sarcoma Date of Surgery: 06/03/18 Discharge Date: 06/03/18 Treatment or Instructions: Discharge home [after recovery per ASU criteria]. Diet,as tolerated, when fully awake advance as tolerated. Activities within moderation encouraged. Follow up in my office by appointment in about [1 week]. Call for appointment. Leave wounds [covered], [keep clean and dry, until office visit in 1 week]. Hold of on school/work [until evaluation in office]. Meds per med rec. Percocet. May shower [in 48 hrs], [try to keep operated area as dry as possible]. Prescriptions: Oxycodone HCl/Acetaminophen [Percocet 5-325 mg Tablet] 1 tab PO ASDIR PRN #15 tab PRN Reason: Referrals: JIMBO SAAVEDRA MD [Primary Care Provider] - Discharge Diet: As Tolerated Respiratory Treatments at Home: Deep Breathing/Coughing Discharge Activity: Activity As Tolerated Report the Following to Your Physician Immediately: Shortness of Breath, Unusual Bleeding
--- NOTE | 2018-06-03 11:34 | Operative Report ---
Operative Report DATE OF SURGERY: 06/03/18 PREOPERATIVE DIAGNOSIS: Metastatic synovial sarcoma POSTOPERATIVE DIAGNOSIS: Metastatic synovial sarcoma OPERATION: 1. Ultrasound evaluation of the right internal cuff. #2 Port-A- Cath insertion via real time access in the right internal jugular vein. 3. Angiogram and interpretation. SURGEON: RAUL MEYER SHIP LOADER: None. ANESTHESIA: Moderate Sedation TISSUE REMOVED OR ALTERED: Not applicable. COMPLICATIONS: Prolonged insertion. ESTIMATED BLOOD LOSS: 5 mL. INTRAOPERATIVE FINDINGS: Of a satisfactory right internal jugular vein, estimated to be about 1.2 cm in diameter. Very challenging to access, the wall seems thick and the needle tended to bounce off. Gaining access took an unusually long time. Satisfactory position with the tip just down in the right atrium. Easy egress of blood and ingress of heparinized solution. Angiogram demonstrates flow of contrast through the right atrium and ventricle. PROCEDURE: After obtaining informed consent, the patient was taken to the Project Coordinator and positioned supine. The [right] neck and chest were prepared with chlorhexidine and draped out with sterile linen. After the " universal timeout", in which it was verified that the patient continued to receive antibiotic, the procedure commenced. A steriley sheathed ultrasound probe was used to evaluate the [ right] internal jugular vein. Local anesthesia was infiltrated adjacent to the probe. Access into the [right] internal jugular vein was obtained using a micropuncture needle, followed by micropuncture wire and then a micropuncture catheter. This part of the procedure was unusually difficult as it proved very challenging to get the needle into the venous lumen. Once in it tended to go upwards into the internal jugular. Considerable time and manipulation was taken in getting this step done. This was followed by introduction of a 0.035 guidewire the tip of which was placed down into the inferior vena cava . The port sites was marked , locally anesthetized and incision made. Dissection now proceeded to the deep subcutaneous subcutaneous tissues so that a pocket for the port was made. Meticulous hemostasis was secured and the catheter was tunneled between the 2 incisions. Proximally, the catheter was now positioned using a peel-away sheath. Distally the catheter was tailored to an appropriate length and then mated to the port using the contained fixating device. The port was now placed in the pocket and the catheter optimally positioned. The port was accessed with a Rose needle and an angiogram done under digital subtraction. The findings as dictated. With adequate and satisfactory positioning, both lumens of the chamber were irrigated with heparinized solution. The wounds were now closed using interrupted 3-0 PDS to the subcutaneous tissues and a continuous subcuticular suture of 4-0 Monocryl to the skin. These are reinforced with Steri-Strips over benzoin and then dressings applied. Time: 3.5 minute. Dose: 27.92 m Gy Contrast: 10 Mls. Isovue 300. Copies of the dictated operative report for Dr. Raul Radford MD.
--- NOTE | 2018-06-03 11:54 | RADIOLOGY REPORT (SQ) ---
EXAM DESCRIPTION: PORTACATH INSERTION COMPLETED DATE/TIME: 06/03/2018 11:11 am REASON FOR STUDY: C49.9 CONNECTIVE AND SOFT TISSUE CA C49.9 MALIGNANT NEOPLASM OF CONNECTIVE AND SO FT TISSUE, UNSP COMPARISON: None. FLUOROSCOPY TIME: 3.5 minute. 5 images saved to PACS. TECHNIQUE: Intra-operative images acquired during surgical procedure to evaluate progress. NUMBER OF IMAGES: 5 series of images. LIMITATIONS: None. FINDINGS: Images of the upper chest acquired during catheter placement. IMPRESSION: IMAGE(S) OBTAINED DURING PROCEDURE. COMMENT: Quality ID [id number]: Final reports for procedures using fluoroscopy that document radiation exp osure indices, or exposure time and number of fluorographic images (if radiation exposure indices are not available) Please consult full operative report of the attending physician for description of the procedure. TECHNICAL DOCUMENTATION: JOB ID: [id number] [employer]- All Rights Reserved Reading location - IP/workstation name: [email or web address]
--- NOTE | 2018-06-03 12:08 | RADIOLOGY REPORT (SQ) ---
EXAM DESCRIPTION: CHEST SINGLE VIEW COMPLETED DATE/TIME: 06/03/2018 11:56 am REASON FOR STUDY: s/p port placement COMPARISON: 06/03/2018 EXAM PARAMETERS: NUMBER OF VIEWS: One view. TECHNIQUE: Single frontal radiographic view of the chest acquired. RADIATION DOSE: NA LIMITATIONS: None. FINDINGS: LUNGS AND PLEURA: Unchanged multiple bilateral lung masses. Small right pleural effusion, stable. No pneumothorax. MEDIASTINUM AND HILAR STRUCTURES: Stable. HEART AND VASCULAR STRUCTURES: Heart normal in size. Normal vasculature. BONES: No acute bony abnormality. HARDWARE: Placement of a single-lumen right internal jugular chest port with tip at superior vena cav a. OTHER: No other significant finding. IMPRESSION: Placement of a single-lumen right chest port with tip at SVC. No pneumothorax. Stable bilateral lung masses and small right effusion. TECHNICAL DOCUMENTATION: JOB ID: [id number] [employer]- All Rights Reserved Reading location - IP/workstation name: [email or web address]
[2018-06-03 12:40] VITALS: BP 137/81
== END 2018-06-03 12:35 | disposition home or self-care (01) ==
LOC: CCL 07:51
PROVIDERS: ATTEND Surgery
DX: C49.9 Malignant neoplasm of connective and soft tissue, unspecified (principal); E05.90 Thyrotoxicosis, unspecified without thyrotoxic crisis or storm; Z96.642 Presence of left artificial hip joint; Z79.899 Other long term (current) drug therapy; Z89.511 Acquired absence of right leg below knee; Z01.818 Encounter for other preprocedural examination
CPT/HCPCS: 36415; 85027; 80048; 36561; 76937; 77001; 71045; C1752; C1788; J2250; J3490 ×2; J0690 ×2; J3010; J1644

== ENCOUNTER → 2018-06-30 | Outpatient (CLI) | payer OTHER ==
--- NOTE | 2018-06-30 15:21 | RADIOLOGY REPORT (SQ) ---
EXAM DESCRIPTION: CT CHEST WITH COMPLETED DATE/TIME: 06/30/2018 10:50 am REASON FOR STUDY: MALIGNANT NEOPLASM OF CONNECTIVE AND SOFT TISSUE (C49.9), SECONDARY LUNG CA C49.9 MALIGNANT NEOPLASM OF CONNECTIVE AND SOFT TISSUE, UNSP COMPARISON: 04/14/2018. TECHNIQUE: CT scan of the chest performed using helical scanning technique with dynamic intravenous contrast injection. Images reviewed with lung, soft tissue and bone windows. Reconstructed coronal and sagittal MPR and MIP images reviewed. All images stored on PACS. All CT scanners at this facility use dose modulation, iterative reconstruction, and/or weight based d osing when appropriate to reduce radiation dose to as low as reasonably achievable (ALARA). [facility]: Dose Right [facility]: CareDose [facility]: Dose Right [facility]: Teradose 4D [facility]: [employer] CONTRAST TYPE AND DOSE: 100 mL Omnipaque 350- low osmolar. RENAL FUNCTION: BUN 12 creatinine 0.61. RADIATION DOSE: . LIMITATIONS: None. FINDINGS: LUNGS AND PLEURA: In general the previously seen pulmonary masses have decreased in size. The largest in the right upper lobe currently has maximum measurement of 6 cm with prior maximum tadeo surement 9.1 cm. The largest in the lateral left upper lobe currently measures 1.8 x 3.5 cm with jessica or measurement 2.1 by 3.6 cm. Mass in the left lower lobe (axial image 56) currently measures 1.9 cm with prior measurement 2.2 cm. Numerous other pulmonary nodules are present in generally have decre ased in size. Previously seen right pleural effusion has resolved. HILAR AND MEDIASTINAL STRUCTURES: Enlarged lymph node in the aorta pulmonary window has decreased in size, now measuring 1.1 x 1.5 cm with prior measurement of 2.1 x 3.1 cm. HEART AND VASCULAR STRUCTURES: No aneurysm or dissection. No central pulmonary emboli. No pericardi al effusion. HARDWARE: Vascular port. UPPER ABDOMEN: See separate report of the CT of the abdomen. THYROID AND OTHER SOFT TISSUES: No masses. No adenopathy. BONES: Sclerotic lesion in the body of T 12 appear slightly worse. No new bony lesions. OTHER: No other significant finding. IMPRESSION: 1. OVERALL IMPROVEMENT IN APPEARANCE OF THE CHEST. PREVIOUSLY SEEN RIGHT PLEURAL EFFUSION HAS RESOLV ED. NUMEROUS PULMONARY MASSES HAVE GENERALLY DECREASED IN SIZE SOMEWHAT. THE ENLARGED LYMPH NODE IN THE AORTA PULMONARY WINDOW HAS DECREASED IN SIZE. 2. SCLEROTIC LESION IN THE BODY OF T12 AGAIN SEEN. CURRENTLY THIS APPEARS SLIGHTLY WORSE AND MORE EX TENSIVE AND IS CONCERNING FOR METASTATIC LESION. TECHNICAL DOCUMENTATION: JOB ID: [id number] Quality ID # [id number]: Final reports with documentation of one or more dose reduction techniques (e.g., Au tomated exposure control, adjustment of the mA and/or kV according to patient size, use of iterative reconstruction technique) 2010 [employer]- All Rights Reserved Reading location - IP/workstation name: [email or web address]
--- NOTE | 2018-06-30 15:28 | RADIOLOGY REPORT (SQ) ---
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 CTA chest dated 04/14/2018. TECHNIQUE: CT scan of the abdomen and pelvis performed using helical scanning technique with dynamic intravenous contrast injection. No oral contrast. Images reviewed with lung, soft tissue, and bone windows. Reconstructed coronal and sagittal MPR images reviewed. Delayed images for evaluation of the urinary system also acquired. All images stored on PACS. All CT scanners at this facility use dose modulation, iterative reconstruction, and/or weight based d osing when appropriate to reduce radiation dose to as low as reasonably achievable (ALARA). [facility]: Dose Right [facility]: CareDose [facility]: Dose Right [facility]: Teradose 4D [facility]: [employer] CONTRAST TYPE AND DOSE: contrast/concentration: Isovue 350.00 mg/ml; Total Contrast Delivered: 100.0 ml; Total Saline Delivered: 72.0 ml RENAL FUNCTION: BUN 12 creatinine 0.61. RADIATION DOSE: CT Rad equipment meets quality standard of care and radiation dose reduction techniq ues were employed. CTDIvol: 5.9 - 14.6 mGy. DLP: 1797 mGy-cm.. LIMITATIONS: None. FINDINGS: LOWER CHEST: See separate report of the CT of the chest. LIVER: Normal size. There is a faint area of homogeneous contrast enhancement in the lateral right l obe of the liver on the early contrast images (axial image 31) measuring approximately 1.8 cm. Less apparent on delayed imaging. No dilated ducts. SPLEEN: Normal size. No focal lesions. PANCREAS: No masses. No significant calcifications. No adjacent inflammation or peripancreatic fluid collections. Pancreatic duct not dilated. GALLBLADDER: No identified stones by CT criteria. No inflammatory changes to suggest cholecystitis. ADRENAL GLANDS: No significant masses or asymmetry. RIGHT KIDNEY AND URETER: No solid masses. No significant calcifications. No hydronephrosis or hyd roureter. LEFT KIDNEY AND URETER: No solid masses. No significant calcifications. No hydronephrosis or hydr oureter. AORTA AND VESSELS: No aneurysm. No dissection. Renal arteries, SMA, celiac without stenosis. RETROPERITONEUM: No retroperitoneal adenopathy, hemorrhage or masses. BOWEL AND PERITONEAL CAVITY: No masses or inflammatory changes. No free fluid or peritoneal masses. APPENDIX: Normal. PELVIS: No mass. No free fluid. Normal bladder. ABDOMINAL WALL: No masses. No hernias. BONES: No significant or acute findings. Lesion in the T12 vertebral body described in the separate report of the CT chest. Left hip prosthesis. OTHER: No other significant finding. IMPRESSION: FAINT AREA OF HOMOGENEOUS CONTRAST ENHANCEMENT IN THE LATERAL RIGHT LOBE OF THE LIVER. THIS WAS NOT APPARENT ON THE PRIOR ABDOMINAL CT (04/15/2018) BUT WAS DEMONSTRATED ON THE PRIOR CHEST C T (04/14/2018). THIS WAS PROBABLY ALSO PRESENT ON THE OLDER STUDY IN MARCH 2010. THIS MAY BE AN INC IDENTAL AREA OF TRANSIENT HEPATIC ATTENUATION DIFFERENCE (LEWIS). NO OTHER SIGNIFICANT OR ACUTE FINDI NG IN THE ABDOMEN OR PELVIS ON CT SCAN WITH IV CONTRAST. TECHNICAL DOCUMENTATION: JOB ID: [id number] Quality ID # 436: Final reports with documentation of one or more dose reduction techniques (e.g., Au tomated exposure control, adjustment of the mA and/or kV according to patient size, use of iterative reconstruction technique) 2010 [email or web address]- All Rights Reserved Reading location - IP/workstation name: [email or web address]
== END ==
LOC: RAD 09:50
PROVIDERS: ATTEND Internal Medicine
DX: C49.9 Malignant neoplasm of connective and soft tissue, unspecified (principal); C78.01 Secondary malignant neoplasm of right lung
CPT/HCPCS: 71260; 74177

== ENCOUNTER → 2018-07-31 | Outpatient (CLI) | payer OTHER ==
--- NOTE | 2018-07-31 15:25 | XCELERA REPORT ---
[address] [address] Upper Extremity Venous Evaluation Name: COLTON ESCALONA Age: 38 yrs Gender: Female : 1980 Patient Status: Outpatient Patient Location: Study Date: 07/31/2018 10:08 AM Procedure: Unilateral duplex scan of the right upper extremity veins was performed, including responses to compression and other maneuvers. Reason For Study: RUE SWELLING Ordering Physician: KARENA GILL PA-C Performed By: Gloria Rodriguez Right Side Venous Evaluation Abnormal filling, no Colour flow or compression in the mid arm Cephalic vein, Otherwise normal vessel filling wall to wall, compression and augmentation as well as Colour flow down to the forearm veins. Interpretation Summary No duplex evidence of DVT or obstruction in the right upper extremity. Limited Superfiicial phlebitis in the Cephalic sarah on the right. Acute. : KARENA GILL PA-C > Timur Radford
== END ==
LOC: SP 08:58
PROVIDERS: ATTEND Physician Assistant Medical
DX: M79.621 Pain in right upper arm (principal); R22.31 Localized swelling, mass and lump, right upper limb
CPT/HCPCS: 93971

== ENCOUNTER → 2018-09-03 | Outpatient (CLI) | payer OTHER ==
--- NOTE | 2018-09-03 12:14 | RADIOLOGY REPORT (SQ) ---
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 No oral contrast. Images reviewed with lung, soft tissue, and bone windows. Reconstructed coronal and sagittal MPR images reviewed. Delayed images for evaluation of the urinary system also acquired. All images stored on PACS. All CT scanners at this facility use dose modulation, iterative reconstruction, and/or weight based d osing when appropriate to reduce radiation dose to as low as reasonably achievable (ALARA). [facility]: Dose Right [facility]: CareDose [facility]: Dose Right [facility]: Teradose 4D [facility]: [employer] CONTRAST TYPE AND DOSE: contrast/concentration: Isovue 350.00 mg/ml; Total Contrast Delivered: 100.0 ml; Total Saline Delivered: 72.0 ml 100 cc Omnipaque 350 RENAL FUNCTION: Creatinine 0.6 RADIATION DOSE: CT Rad equipment meets quality standard of care and radiation dose reduction techniq ues were employed. CTDIvol: 9.3 - 17.3 mGy. DLP: 2205 mGy-cm.. LIMITATIONS: None. FINDINGS: LOWER CHEST: See separate report of the CT of the chest. LIVER: There are subtle stable areas enhancement involving both lobes best visualized on early imagin g. The hepatic dome lesion measures 1.5 cm (series 3, image 13). The segment 3 lesion measures 3 po int 1 cm (series 3, image 31). The inferior right hepatic lobe lesion measures 2.1 cm (series 3, nava ge 33). No new hepatic lesions. No intrahepatic ductal dilation. SPLEEN: Normal size. No focal lesions. PANCREAS: No masses. No significant calcifications. No adjacent inflammation or peripancreatic fluid collections. Pancreatic duct not dilated. GALLBLADDER: Decompressed. ADRENAL GLANDS: No significant masses or asymmetry. RIGHT KIDNEY AND URETER: No solid masses. No significant calcifications. No hydronephrosis or hyd roureter. LEFT KIDNEY AND URETER: No solid masses. No significant calcifications. No hydronephrosis or hydr oureter. AORTA AND VESSELS: No aneurysm. No dissection. Renal arteries, SMA, celiac without stenosis. RETROPERITONEUM: No retroperitoneal adenopathy, hemorrhage or masses. BOWEL AND PERITONEAL CAVITY: No masses or inflammatory changes. No free fluid or peritoneal masses. APPENDIX: Normal. PELVIS: No mass. No free fluid. Normal bladder. ABDOMINAL WALL: No masses. No hernias. BONES: No acute bony abnormality. Unchanged mixed lytic and sclerotic lesion within T12. No new bon y lesions. OTHER: No other significant finding. IMPRESSION: 1. Stable bilobar subtle arterial enhancing hepatic lesions as detailed above. These a re stable from most recent prior but demonstrate increased conspicuity compared to exam dated 04/15/20 18. No new discrete lesions. 2. No additional evidence of acute intra-abdominal/pelvic process. TECHNICAL DOCUMENTATION: JOB ID: [id number] Quality ID # 436: Final reports with documentation of one or more dose reduction techniques (e.g., Au tomated exposure control, adjustment of the mA and/or kV according to patient size, use of iterative reconstruction technique) 2010 [email or web address]- All Rights Reserved Reading location - IP/workstation name: [email or web address]
--- NOTE | 2018-09-03 12:18 | RADIOLOGY REPORT (SQ) ---
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 RENAL FUNCTION: GFR > 60. TECHNIQUE: CT scan of the chest performed using helical scanning technique with dynamic intravenous contrast injection. Images reviewed with lung, soft tissue and bone windows. Reconstructed coronal a nd sagittal MPR images reviewed. All images stored on PACS. CT scan of the abdomen and pelvis performed with intravenous and without oral contrastusing helical s jenny technique with dynamic intravenous contrast injection. Images reviewed with lung, soft tissu e and bone windows. Reconstructed coronal and sagittal MPR images reviewed. Delayed images for eval uation of the urinary system also acquired and evaluated. All images stored on PACS. All CT scanners at this facility use dose modulation, iterative reconstruction, and/or weight based d osing when appropriate to reduce radiation dose to as low as reasonably achievable (ALARA). [facility]: Dose Right [facility]: CareDose [facility]: Dose Right [facility]: Teradose 4D [facility]: [employer] RADIATION DOSE: 32 mGy . LIMITATIONS: None. FINDINGS: CHEST: LUNGS AND PLEURA: Multiple pulmonary nodules are present, stable or slightly smaller in size as pebbles red to CT chest abdomen pelvis 06/30/2018. Index lesions as follows: Right lung at the intersection of the major and minor fissure 4.8 x 3.3 cm (was 5.8 x 4.1 cm 8). Lateral left upper lobe image 54, 3.6 x 2 cm in size (no change compared to 06/30/2018). Medial left upper lobe abutting the mediastinum, 1.5 x 0.7 cm axial image 34 (was 2 x 1.2 cm on 2017). No pleural effusions. No pneumothorax. HILAR AND MEDIASTINAL STRUCTURES: No identified masses or abnormal nodes. HEART AND VASCULAR STRUCTURES: No aneurysm or dissection. No central pulmonary emboli. No pericardi al effusion. HARDWARE: Right-sided permanent central line tip superior vena cava THYROID AND OTHER SOFT TISSUES: No masses. No adenopathy. BONES: T12 vertebral body near completely replaced by a mixed lytic and blastic tumor. No gross epid ural tumor by CT. No compression fracture OTHER: No other significant finding. ABDOMEN AND PELVIS: LIVER: Normal size. No masses. No dilated ducts. SPLEEN: Normal size. No focal lesions. PANCREAS: No masses. No significant calcifications. No adjacent inflammation or peripancreatic fluid collections. Pancreatic duct not dilated. GALLBLADDER: Contracted, not well seen ADRENAL GLANDS: No significant masses or asymmetry. RIGHT KIDNEY AND URETER: No solid masses. No significant calcification. No hydronephrosis or hydroure ter. LEFT KIDNEY AND URETER: No solid masses. No significant calcification. No hydronephrosis or hydrouret er. AORTA AND VESSELS: No aneurysm. No dissection. Renal arteries, SMA, celiac without stenosis. RETROPERITONEUM: No retroperitoneal adenopathy, hemorrhage or masses. BOWEL AND PERITONEAL CAVITY: No CT evidence of bowel obstruction or free intraperitoneal air or fluid . No colonic diverticulosis APPENDIX: Normal. ABDOMINAL WALL: No masses. No hernias. PELVIS: No mass or free fluid. Normal bladder. Normal size female pelvic organs BONES: T12 vertebral body metastatic lesion without compression fracture. OTHER: No other significant finding. IMPRESSION: Stable to slight decrease in size of multiple lung lesions compared to 06/30/2018 Stable T12 mixed lytic and blastic lesion worrisome for metastatic disease. No T12 compression fract ure. TECHNICAL DOCUMENTATION: JOB ID: [id number] Quality ID # 436: Final reports with documentation of one or more dose reduction techniques (e.g., Au tomated exposure control, adjustment of the mA and/or kV according to patient size, use of iterative reconstruction technique) 2010 [employer] All Rights Reserved Reading location - IP/workstation name: [email or web address]
== END ==
LOC: RAD 09:14
PROVIDERS: ATTEND Internal Medicine
DX: C49.9 Malignant neoplasm of connective and soft tissue, unspecified (principal); C78.01 Secondary malignant neoplasm of right lung
CPT/HCPCS: 71260; 74177

== ENCOUNTER → 2018-10-14 | Outpatient (CLI) | payer OTHER ==
--- NOTE | 2018-10-14 12:42 | RADIOLOGY REPORT (SQ) ---
EXAM DESCRIPTION: CT CHEST WITH COMPLETED DATE/TIME: 10/14/2018 9:36 am REASON FOR STUDY: C49.9 MALIGNANT NEOPLASM OF CONNECTIVE AND SOFT TISSUE, UNSP C49.9 MALIGNANT NEOP LASM OF CONNECTIVE AND SOFT TISSUE, UNSP COMPARISON: 09/03/2018 TECHNIQUE: CT scan of the chest performed using helical scanning technique with dynamic intravenous contrast injection. Images reviewed with lung, soft tissue and bone windows. Reconstructed coronal and sagittal MPR and MIP images reviewed. All images stored on PACS. All CT scanners at this facility use dose modulation, iterative reconstruction, and/or weight based d osing when appropriate to reduce radiation dose to as low as reasonably achievable (ALARA). [facility]: Dose Right [facility]: CareDose [facility]: Dose Right [facility]: Teradose 4D [facility]: MD-IT CONTRAST TYPE AND DOSE: 100 mL Omnipaque 350- low osmolar. RENAL FUNCTION: BUN 7 creatinine 0.5 RADIATION DOSE: . LIMITATIONS: None. FINDINGS: LUNGS AND PLEURA: Once again multiple pulmonary nodules are seen. The largest lesion is s een in the right lung and measures 40 x 24.5 mm on image 48. This is slightly smaller than on the ea rlier study where it measured 47.8 x 33.4 mm. Pleural nodule on the left on image 50 measures 37.4 x 20.7 mm. This compares with 36.2 x 21.1 mm on the earlier study. A lesion adjacent to the mediasti num in the left upper lobe that measures 14.5 x 7.2 mm on the earlier study measures 16.1 x 6 mm on t he current study. A lesion in the left lung on image 64 measures 28 mm in largest diameter compared with a measuring 27 mm in largest diameter on the prior study. Multiple smaller lesions are present. HILAR AND MEDIASTINAL STRUCTURES: No identified masses or abnormal nodes. HEART AND VASCULAR STRUCTURES: Minimal pericardial effusion. No aneurysm. HARDWARE: Injection port on the right. UPPER ABDOMEN: See separate report of the CT of the abdomen. THYROID AND OTHER SOFT TISSUES: No masses. No adenopathy. BONES: There is a large mixed lesion at what appears to be T12 that is unchanged. OTHER: No other significant finding. IMPRESSION: Multiple pulmonary nodules with minimal changes as described. There is no significant i mprovement. Metastatic lesion in the spine is unchanged. TECHNICAL DOCUMENTATION: JOB ID: [id number] Quality ID # 436: Final reports with documentation of one or more dose reduction techniques (e.g., Au tomated exposure control, adjustment of the mA and/or kV according to patient size, use of iterative reconstruction technique) 2010 [employer]- All Rights Reserved Reading location - IP/workstation name: [email or web address]
--- NOTE | 2018-10-14 12:52 | RADIOLOGY REPORT (SQ) ---
EXAM DESCRIPTION: CT ABD/PELVIS WITH IV ONLY COMPLETED DATE/TIME: 10/14/2018 9:36 am REASON FOR STUDY: C49.9 MALIGNANT NEOPLASM OF CONNECTIVE AND SOFT TISSUE, UNSP C49.9 MALIGNANT NEOP LASM OF CONNECTIVE AND SOFT TISSUE, UNSP COMPARISON: 09/03/2018 TECHNIQUE: CT scan of the abdomen and pelvis performed using helical scanning technique with dynamic intravenous contrast injection. No oral contrast. Images reviewed with lung, soft tissue, and bone windows. Reconstructed coronal and sagittal MPR images reviewed. Delayed images for evaluation of the urinary system also acquired. All images stored on PACS. All CT scanners at this facility use dose modulation, iterative reconstruction, and/or weight based d osing when appropriate to reduce radiation dose to as low as reasonably achievable (ALARA). [facility]: Dose Right [facility]: CareDose [facility]: Dose Right [facility]: Teradose 4D [facility]: [employer] CONTRAST TYPE AND DOSE: contrast/concentration: Isovue 350.00 mg/ml; Total Contrast Delivered: 100.0 ml; Total Saline Delivered: 72.0 ml RENAL FUNCTION: BUN 7 creatinine 0.5 RADIATION DOSE: CT Rad equipment meets quality standard of care and radiation dose reduction techniq ues were employed. CTDIvol: 6.3 - 12.2 mGy. DLP: 1566 mGy-cm.. LIMITATIONS: None. FINDINGS: LOWER CHEST: See separate report of the CT of the chest. LIVER: The liver is hypoattenuating. 3 hepatic lesions are seen. There is a lesion in the dome of t he liver on image 13 that measures 12 mm. A lesion in the left lobe measures 3 cm. This is on image 32. The lesion in the right lobe measures 22 mm in AP diameter. No new lesions are appreciated. T hese lesions are all slightly better defined than on the earlier study. SPLEEN: Normal size. No focal lesions. PANCREAS: No masses. No significant calcifications. No adjacent inflammation or peripancreatic fluid collections. Pancreatic duct not dilated. GALLBLADDER: No identified stones by CT criteria. No inflammatory changes to suggest cholecystitis. ADRENAL GLANDS: No significant masses or asymmetry. RIGHT KIDNEY AND URETER: No solid masses. No significant calcifications. No hydronephrosis or hyd roureter. LEFT KIDNEY AND URETER: No solid masses. No significant calcifications. No hydronephrosis or hydr oureter. AORTA AND VESSELS: No aneurysm. No dissection. Renal arteries, SMA, celiac without stenosis. RETROPERITONEUM: No retroperitoneal adenopathy, hemorrhage or masses. BOWEL AND PERITONEAL CAVITY: No masses or inflammatory changes. No free fluid or peritoneal masses. APPENDIX: Normal. PELVIS: No mass. No free fluid. Normal bladder. ABDOMINAL WALL: No masses. No hernias. BONES: A large mixed lesion is once again seen at T12. This shows no significant change. No additio nal osseous lesions are appreciated. OTHER: No other significant finding. IMPRESSION: Fatty infiltration of the liver. There are 3 stable hepatic lesions with no new hepatic disease. Stable metastatic lesion to T12. TECHNICAL DOCUMENTATION: JOB ID: [id number] Quality ID # 436: Final reports with documentation of one or more dose reduction techniques (e.g., Au tomated exposure control, adjustment of the mA and/or kV according to patient size, use of iterative reconstruction technique) 2010 [email or web address]- All Rights Reserved Reading location - IP/workstation name: [email or web address]
== END ==
LOC: RAD 10:46
PROVIDERS: ATTEND Internal Medicine
DX: C49.9 Malignant neoplasm of connective and soft tissue, unspecified (principal); C79.51 Secondary malignant neoplasm of bone; K76.0 Fatty (change of) liver, not elsewhere classified; R91.8 Other nonspecific abnormal finding of lung field
CPT/HCPCS: 71260; 74177

== ENCOUNTER → 2018-12-09 | Outpatient (CLI) | payer OTHER ==
--- NOTE | 2018-12-09 10:54 | RADIOLOGY REPORT (SQ) ---
EXAM DESCRIPTION: CT CHEST WITH COMPLETED DATE/TIME: 12/09/2018 9:12 am REASON FOR STUDY: MALIGNANT NEOPLASM OF CONNECTIVE AND SOFT TISSUE, UNSP C49.9 MALIGNANT NEOPLASM O F CONNECTIVE AND SOFT TISSUE, UNSP COMPARISON: 10/14/2018, 09/03/2018, and 06/30/2018. TECHNIQUE: CT scan of the chest performed using helical scanning technique with dynamic intravenous contrast injection. Images reviewed with lung, soft tissue and bone windows. Reconstructed coronal and sagittal MPR and MIP images reviewed. All images stored on PACS. All CT scanners at this facility use dose modulation, iterative reconstruction, and/or weight based d osing when appropriate to reduce radiation dose to as low as reasonably achievable (ALARA). [facility]: Dose Right [facility]: CareDose [facility]: Dose Right [facility]: Teradose 4D [facility]: [employer] CONTRAST TYPE AND DOSE: 100 mL Omnipaque 350- low osmolar. RENAL FUNCTION: BUN 7 creatinine 0.5. RADIATION DOSE: . LIMITATIONS: None. FINDINGS: LUNGS AND PLEURA: Almost all of the multiple pulmonary nodules have increased in size. Th e largest nodules measure as follows: Nodule in the right upper lobe (image 23) currently measures 1.9 cm with prior measurement 1.1 cm. N odule in the anterior right mid lung (image 39) measures 1.5 cm with prior measurement 1.3 cm. Nodul e in the mid right lung (image 44) measures 3.4 cm with prior measurement 4.0 cm. Nodule in the rig ht lung base (image 65) measures 1.8 cm with prior measurement 1.2 cm. Nodule in the posterior right lung base (image 72) measures 1.7 cm with prior measurement 5 mm. Subpleural nodule in the lateral left lung (image 42) currently measures 2.6 x 4.1 cm with prior otto urement 2.1 x 3.7 cm. Nodule in the left mid lung (image 51) currently measures 3.1 cm with prior me asurement 2.7 cm. Nodule in the posterior left lower lobe (image 47) currently measures 1.7 cm with prior measurement 1.0 cm. The mass in the lateral left lung base has increased in size significantly . Current measurements are 7.3 x 10.8 cm. Previous measurement 3.2 x 4.6 cm. No pneumothorax. No effusions. HILAR AND MEDIASTINAL STRUCTURES: No identified masses or abnormal nodes. HEART AND VASCULAR STRUCTURES: No aneurysm or dissection. No central pulmonary emboli. No pericardi al effusion. HARDWARE: Vascular port. UPPER ABDOMEN: See separate report of the CT of the abdomen. THYROID AND OTHER SOFT TISSUES: No masses. No adenopathy. BONES: Again seen is a mixed sclerotic and lytic lesion in the body of T12. The lytic component has become more prominent particularly in the anterior portion of the body. OTHER: No other significant finding. IMPRESSION: 1. MULTIPLE PULMONARY NODULES, MANY OF WHICH HAVE INCREASED IN SIZE SIGNIFICANTLY SINCE THE PRIOR KYRIE DY. 2. MIXED SCLEROTIC AND LYTIC LESION IN THE BODY OF T12. THE LYTIC PORTION APPEARS TO HAVE INCREASED SINCE THE PRIOR STUDY. TECHNICAL DOCUMENTATION: JOB ID: [id number] Quality ID # 436: Final reports with documentation of one or more dose reduction techniques (e.g., Au tomated exposure control, adjustment of the mA and/or kV according to patient size, use of iterative reconstruction technique) 2010 [employer]- All Rights Reserved Reading location - IP/workstation name: [email or web address]
--- NOTE | 2018-12-09 12:04 | RADIOLOGY REPORT (SQ) ---
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 TECHNIQUE: CT scan of the abdomen and pelvis performed using helical scanning technique with dynamic intravenous contrast injection. No oral contrast. Images reviewed with lung, soft tissue, and bone windows. Reconstructed coronal and sagittal MPR images reviewed. Delayed images for evaluation of the urinary system also acquired. All images stored on PACS. All CT scanners at this facility use dose modulation, iterative reconstruction, and/or weight based d osing when appropriate to reduce radiation dose to as low as reasonably achievable (ALARA). [facility]: Dose Right [facility]: CareDose [facility]: Dose Right [facility]: Teradose 4D [facility]: [employer] CONTRAST TYPE AND DOSE: contrast/concentration: Isovue 350.00 mg/ml; Total Contrast Delivered: 100.0 ml; Total Saline Delivered: 72.0 ml RENAL FUNCTION: None required. The patient is less than 50 years old. RADIATION DOSE: CT Rad equipment meets quality standard of care and radiation dose reduction techniq ues were employed. CTDIvol: 6.3 - 13.4 mGy. DLP: 1630 mGy-cm.. LIMITATIONS: None. FINDINGS: LOWER CHEST: See separate report of the CT of the chest. LIVER: Normal size. The previously seen faint early enhancing lesions are unchanged in size and appe arance. No new lesions. No dilated ducts. SPLEEN: Normal size. No focal lesions. PANCREAS: No masses. No significant calcifications. No adjacent inflammation or peripancreatic fluid collections. Pancreatic duct not dilated. GALLBLADDER: No identified stones by CT criteria. No inflammatory changes to suggest cholecystitis. ADRENAL GLANDS: No significant masses or asymmetry. RIGHT KIDNEY AND URETER: No solid masses. No significant calcifications. No hydronephrosis or hyd roureter. LEFT KIDNEY AND URETER: No solid masses. No significant calcifications. No hydronephrosis or hydr oureter. AORTA AND VESSELS: No aneurysm. No dissection. Renal arteries, SMA, celiac without stenosis. RETROPERITONEUM: No retroperitoneal adenopathy, hemorrhage or masses. BOWEL AND PERITONEAL CAVITY: No masses or inflammatory changes. No free fluid or peritoneal masses. APPENDIX: Normal. PELVIS: No mass. No free fluid. Normal bladder. ABDOMINAL WALL: No masses. No hernias. BONES: Lesion in the body of T12 discussed in the separate CT of the chest. No other significant or acute findings. OTHER: No other significant finding. IMPRESSION: STABLE FAINT EARLY ENHANCING LESIONS IN THE LIVER. NO PROGRESSION OR OTHER SIGNIFICANT CHANGE. NO OTHER SIGNIFICANT OR ACUTE FINDING IN THE ABDOMEN OR PELVIS ON CT SCAN WITH IV CONTRAST. TECHNICAL DOCUMENTATION: JOB ID: [id number] Quality ID # [id number]: Final reports with documentation of one or more dose reduction techniques (e.g., Au tomated exposure control, adjustment of the mA and/or kV according to patient size, use of iterative reconstruction technique) 2010 [employer]- All Rights Reserved Reading location - IP/workstation name: [email or web address]
== END ==
LOC: RAD 08:50
PROVIDERS: ATTEND Internal Medicine
DX: C49.9 Malignant neoplasm of connective and soft tissue, unspecified (principal)
CPT/HCPCS: 71260; 74177